=== PATIENT | female | born 1945 | race Caucasian/White ===

== ENCOUNTER 2020-10-04 11:00 | Outpatient (REF) | payer MEDICARE, SELFPAY | END 2020-10-04 11:01 | disposition home or self-care (01) | LOC: HO.MANLNP 11:00 | PROVIDERS: PCP Physician Assistant; Visit Provider Physician Assistant | DX: R30.9 Painful micturition, unspecified (principal) | CPT/HCPCS: 87086 ==

== ENCOUNTER 2021-01-28 07:41 | Outpatient (REF) | payer MEDICARE, SELFPAY ==
[2021-01-28 11:59] LABS: Estimated Average Glucose 140 mg/dL; Hemoglobin A1c % 6.5 %
[2021-01-28 12:00] LABS: Alanine Aminotransferase 21 U/L (0-31); Alkaline Phosphatase 89 U/L (39-117); Anion Gap 11 (12-20); Aspartate Amino Transferase 20 U/L (5-31); Bilirubin Total 1.3 mg/dL (0.0-1.0); Blood Urea Nitrogen 18 mg/dL (9-16); Calcium 8.6 mg/dL (8.4-10.2); Carbon Dioxide 27 mmol/L (22-29); Chloride 106 mmol/L (96-108); Cholesterol 181 mg/dL; Estimated Glomerular Filt Rate > 60; Glucose Fasting 121 mg/dL (60-99); HDL Cholesterol 46 mg/dL; LDL Cholesterol Calculated 105 mg/dl; Potassium 4.3 mmol/L (3.3-5.1); Sodium 140 mmol/L (135-145); Total Protein 6.7 g/dL (6.5-8.0); Triglycerides 152 mg/dL
[2021-01-28 13:11] LABS: Creatinine Urine 80.66 mg/dL; Microalbumin Urine < 5.0 mg/L
== END 2021-01-28 07:42 | disposition home or self-care (01) ==
LOC: HO.MANLR 07:41
PROVIDERS: PCP Internal Medicine; Visit Provider Internal Medicine
DX: E11.9 Type 2 diabetes mellitus without complications (principal)
CPT/HCPCS: 36415; 80053; 80061; 82043; 83036

== ENCOUNTER 2021-05-12 13:53 | Outpatient (REF) | payer MEDICARE, SELFPAY ==
[2021-05-13 03:21] LABS: Estimated Average Glucose 148 mg/dL; Hemoglobin A1c % 6.8 %
== END 2021-05-12 13:54 | disposition home or self-care (01) ==
LOC: HO.MANLDS 13:53
PROVIDERS: Visit Provider Internal Medicine
DX: E11.9 Type 2 diabetes mellitus without complications (principal)
CPT/HCPCS: 36415; 83036

== ENCOUNTER 2021-09-12 11:31 | Outpatient (REF) | payer MEDICARE, SELFPAY ==
[2021-09-12 12:49] LABS: Estimated Average Glucose 148 mg/dL; Hemoglobin A1c % 6.8 %
== END 2021-09-12 11:32 | disposition home or self-care (01) ==
LOC: HO.MANLDS 11:31
PROVIDERS: PCP Internal Medicine; Visit Provider Internal Medicine
DX: E11.9 Type 2 diabetes mellitus without complications (principal)
CPT/HCPCS: 36415; 83036

== ENCOUNTER 2021-12-10 13:50 | Outpatient (REF) | payer MEDICARE, SELFPAY ==
[2021-12-10 18:15] LABS: Estimated Average Glucose 157 mg/dL; Hemoglobin A1c % 7.1 %
== END 2021-12-10 13:51 | disposition home or self-care (01) ==
LOC: HO.MANLDS 13:50
PROVIDERS: PCP Internal Medicine; Visit Provider Internal Medicine
DX: E11.9 Type 2 diabetes mellitus without complications (principal); I10 Essential (primary) hypertension
CPT/HCPCS: 36415; 83036

== ENCOUNTER 2022-01-21 09:48 | Outpatient (REF) | payer MEDICARE, SELFPAY ==
[2022-01-21 12:10] LABS: Alanine Aminotransferase 22 U/L (0-31); Albumin Level 4.2 g/dL (3.5-5.0); Alkaline Phosphatase 91 U/L (39-117); Anion Gap 14 (12-20); Aspartate Amino Transferase 19 U/L (5-31); Bilirubin Total 1.3 mg/dL (0.0-1.0); Blood Urea Nitrogen 18 mg/dL (9-16); Calcium 9.5 mg/dL (8.4-10.2); Carbon Dioxide 26 mmol/L (22-29); Chloride 104 mmol/L (96-108); Cholesterol 176 mg/dL; Estimated Glomerular Filt Rate > 60; Glucose Fasting 142 mg/dL (60-99); HDL Cholesterol 51 mg/dL; LDL Cholesterol Calculated 103 mg/dl; Potassium 4.3 mmol/L (3.3-5.1); Sodium 140 mmol/L (135-145); Total Protein 7.1 g/dL (6.5-8.0); Triglycerides 111 mg/dL
[2022-01-21 12:14] LABS: Creatinine Urine 129.65 mg/dL; Microalbumin Urine < 5.0 mg/L
[2022-01-21 12:19] LABS: Estimated Average Glucose 154 mg/dL
== END 2022-01-21 09:49 | disposition home or self-care (01) ==
LOC: HO.MANLDS 09:48
PROVIDERS: PCP Internal Medicine; Visit Provider Internal Medicine
DX: E11.9 Type 2 diabetes mellitus without complications (principal)
CPT/HCPCS: 36415; 80053; 80061; 82043; 83036

== ENCOUNTER 2022-05-18 12:14 | Outpatient (REF) | payer MEDICARE, SELFPAY ==
[2022-05-18 18:21] LABS: Alanine Aminotransferase 27 U/L (0-31); Alkaline Phosphatase 131 U/L (39-117); Anion Gap 11 (12-20); Aspartate Amino Transferase 22 U/L (5-31); Bilirubin Total 0.9 mg/dL (0.0-1.0); Blood Urea Nitrogen 15 mg/dL (9-16); Calcium 8.8 mg/dL (8.4-10.2); Carbon Dioxide 26 mmol/L (22-29); Chloride 106 mmol/L (96-108); Cholesterol 174 mg/dL; Estimated Glomerular Filt Rate 60; Glucose Random 181 mg/dL (60-115); HDL Cholesterol 44 mg/dL; LDL Cholesterol Calculated 80 mg/dl; Potassium 4.3 mmol/L (3.3-5.1); Sodium 139 mmol/L (135-145); Triglycerides 250 mg/dL
[2022-05-18 18:25] LABS: Microalbumin Urine < 5.0 mg/L
[2022-05-19 05:43] LABS: Estimated Average Glucose 148 mg/dL; Hemoglobin A1c % 6.8 %
== END 2022-05-18 12:15 | disposition home or self-care (01) ==
LOC: HO.MANLDS 12:14
PROVIDERS: Visit Provider Internal Medicine
DX: E11.9 Type 2 diabetes mellitus without complications (principal)
CPT/HCPCS: 36415; 80053; 80061; 82043; 83036

== ENCOUNTER 2022-09-15 10:23 | Outpatient (REF) | payer MEDICARE, SELFPAY ==
[2022-09-15 14:45] LABS: Estimated Average Glucose 151 mg/dL; Hemoglobin A1c % 6.9 %
== END 2022-09-15 10:24 | disposition home or self-care (01) ==
LOC: HO.MANLDS 10:23
PROVIDERS: Visit Provider Internal Medicine
DX: E11.9 Type 2 diabetes mellitus without complications (principal)
CPT/HCPCS: 36415; 83036

== ENCOUNTER 2022-12-21 07:34 | Outpatient (REF) | payer MEDICARE, SELFPAY ==
[2022-12-21 14:14] LABS: Estimated Average Glucose 151 mg/dL; Hemoglobin A1c % 6.9 %
[2022-12-21 14:30] LABS: Alanine Aminotransferase 26 U/L (0-31); Albumin Level 3.9 g/dL (3.5-5.0); Alkaline Phosphatase 99 U/L (39-117); Anion Gap 17 (12-20); Aspartate Amino Transferase 20 U/L (5-31); Bilirubin Total 1.2 mg/dL (0.0-1.0); Blood Urea Nitrogen 16 mg/dL (9-16); Calcium 9.2 mg/dL (8.4-10.2); Carbon Dioxide 26 mmol/L (22-29); Chloride 105 mmol/L (96-108); Cholesterol 178 mg/dL; Estimated Glomerular Filt Rate > 60; Glucose Random 132 mg/dL (60-115); HDL Cholesterol 46 mg/dL; LDL Cholesterol Calculated 110 mg/dl; Potassium 3.9 mmol/L (3.3-5.1); Sodium 144 mmol/L (135-145); Total Protein 6.5 g/dL (6.5-8.0); Triglycerides 114 mg/dL
[2022-12-21 14:48] LABS: Creatinine Urine 64.99 mg/dL; Microalbumin Urine < 5.0 mg/L
== END 2022-12-21 07:35 | disposition home or self-care (01) ==
LOC: HO.MANLDS 07:34
PROVIDERS: Visit Provider Internal Medicine
DX: E11.9 Type 2 diabetes mellitus without complications (principal)
CPT/HCPCS: 36415; 80053; 80061; 82043; 83036

== ENCOUNTER 2023-05-21 14:58 | Outpatient (REF) | payer MEDICARE, SELFPAY ==
[2023-05-21 19:36] LABS: Estimated Average Glucose 143 mg/dL; Hemoglobin A1c % 6.6 %
[2023-05-21 21:02] LABS: Alanine Aminotransferase 21 U/L (0-31); Albumin Level 3.8 g/dL (3.5-5.0); Alkaline Phosphatase 97 U/L (39-117); Anion Gap 14 (12-20); Aspartate Amino Transferase 21 U/L (5-31); Bilirubin Total 0.8 mg/dL (0.0-1.0); Blood Urea Nitrogen 15 mg/dL (9-16); Carbon Dioxide 26 mmol/L (22-29); Chloride 106 mmol/L (96-108); Estimated Glomerular Filt Rate > 60; Glucose Random 181 mg/dL (60-115); Potassium 4.1 mmol/L (3.3-5.1); Sodium 142 mmol/L (135-145); Total Protein 6.6 g/dL (6.5-8.0)
== END 2023-05-21 14:59 | disposition home or self-care (01) ==
LOC: HO.MANLDS 14:58
PROVIDERS: Visit Provider Internal Medicine
DX: E11.9 Type 2 diabetes mellitus without complications (principal)
CPT/HCPCS: 36415; 80053; 83036

== ENCOUNTER 2023-05-26 11:11 | Outpatient (REF) | payer MEDICARE, SELFPAY ==
[2023-05-26 15:23] LABS: Creatinine Urine 35.81 mg/dL; Microalbumin Urine < 5.0 mg/L
== END 2023-05-26 11:12 | disposition home or self-care (01) ==
LOC: HO.MANLNP 11:11
PROVIDERS: Visit Provider Internal Medicine
DX: E11.9 Type 2 diabetes mellitus without complications (principal)
CPT/HCPCS: 82043

== ENCOUNTER 2023-09-13 07:36 | Outpatient (REF) | payer MEDICARE, SELFPAY ==
[2023-09-13 14:03] LABS: Alanine Aminotransferase 17 U/L (0-31); Albumin Level 3.8 g/dL (3.5-5.0); Alkaline Phosphatase 73 U/L (39-117); Anion Gap 16 (12-20); Aspartate Amino Transferase 18 U/L (5-31); Blood Urea Nitrogen 15 mg/dL (9-16); Calcium 9.6 mg/dL (8.4-10.2); Carbon Dioxide 25 mmol/L (22-29); Chloride 103 mmol/L (96-108); Cholesterol 157 mg/dL (<200); Estimated Glomerular Filt Rate > 60; Glucose Random 110 mg/dL (60-115); HDL Cholesterol 41 mg/dL (>40); LDL Cholesterol Calculated 88 mg/dL (<100); Potassium 3.4 mmol/L (3.3-5.1); Sodium 141 mmol/L (135-145); Total Protein 6.9 g/dL (6.5-8.0); Triglycerides 142 mg/dL (<150)
[2023-09-13 14:10] LABS: Estimated Average Glucose 151 mg/dL; Hemoglobin A1c % 6.9 % (<6.0)
[2023-09-13 14:12] LABS: Creatinine Urine 70.35 mg/dL; Microalbumin Urine < 5.0 mg/L
== END 2023-09-13 07:37 | disposition home or self-care (01) ==
LOC: HO.MANLDS 07:36
PROVIDERS: Visit Provider Internal Medicine
DX: E11.9 Type 2 diabetes mellitus without complications (principal)
CPT/HCPCS: 36415; 80053; 80061; 82043; 82570; 83036

== ENCOUNTER 2023-12-10 10:30 | Outpatient (REF) | payer MEDICARE, SELFPAY ==
[2023-12-10 14:12] LABS: Estimated Average Glucose 166 mg/dL; Hemoglobin A1c % 7.4 % (<6.0)
== END 2023-12-10 10:31 | disposition home or self-care (01) ==
LOC: HO.MANLDS 10:30
PROVIDERS: Visit Provider Internal Medicine
DX: E11.9 Type 2 diabetes mellitus without complications (principal)
CPT/HCPCS: 36415; 83036

== ENCOUNTER 2024-02-22 07:33 | Outpatient (REF) | payer MEDICARE, SELFPAY ==
[2024-02-22 13:42] LABS: Estimated Average Glucose 143 mg/dL; Hemoglobin A1c % 6.6 % (<6.0)
[2024-02-22 14:12] LABS: Creatinine Urine 87.29 mg/dL; Microalbumin Urine < 5.0 mg/L
[2024-02-22 14:14] LABS: Alanine Aminotransferase 18 U/L (0-31); Alkaline Phosphatase 84 U/L (39-117); Anion Gap 13 (12-20); Aspartate Amino Transferase 19 U/L (5-31); Bilirubin Total 0.8 mg/dL (0.0-1.0); Blood Urea Nitrogen 20 mg/dL (9-16); Calcium 9.6 mg/dL (8.4-10.2); Carbon Dioxide 30 mmol/L (22-29); Chloride 103 mmol/L (96-108); Cholesterol 155 mg/dL (<200); Estimated Glomerular Filt Rate > 60; Glucose Random 120 mg/dL (60-115); HDL Cholesterol 45 mg/dL (>40); LDL Cholesterol Calculated 90 mg/dL (<100); Potassium 3.7 mmol/L (3.3-5.1); Sodium 142 mmol/L (135-145); Triglycerides 103 mg/dL (<150)
== END 2024-02-22 07:34 | disposition home or self-care (01) ==
LOC: HO.MANLDS 07:33
PROVIDERS: Visit Provider Internal Medicine
DX: E11.9 Type 2 diabetes mellitus without complications (principal)
CPT/HCPCS: 36415; 80053; 80061; 82043; 82570; 83036

== ENCOUNTER 2024-03-03 14:24 | Outpatient (REF) | payer MEDICARE, SELFPAY ==
[2024-03-03 17:52] LABS: Rheumatoid Factor < 13.0 IU/mL (<15.0)
[2024-03-03 17:54] LABS: C Reactive Protein 0.16 mg/dL (< or = 0.50); Uric Acid 5.8 mg/dL (2.4-5.7)
[2024-03-06 21:29] LABS: Lyme Abs Screen <0.90 index
[2024-03-08 11:03] LABS: Cyclic Citrullinated Peptide <16 UNITS
[2024-03-08 12:59] LABS: Anti Nuclear Antibody Pattern Nuclear, Speckled; Anti Nuclear Antibody Screen POSITIVE (NEGATIVE)
== END 2024-03-03 14:25 | disposition home or self-care (01) ==
LOC: HO.MANLDS 14:24
PROVIDERS: Visit Provider Internal Medicine
DX: M25.50 Pain in unspecified joint (principal)
CPT/HCPCS: 36415; 84550; 86038; 86039; 86140; 86200; 86431; 86617; 86618

== ENCOUNTER 2025-03-28 10:49 | Outpatient (REF) | payer MEDICARE, SELFPAY ==
--- OUTSIDE RECORDS SUMMARY | 2025-03-28 12:14 | XMS_ITS | Data Portability ---
Author Organization [facility] Don Internal Medicine, Home Service Address [address] [place] [address] Assessment Encounter Date Assessment Date Assessment LastModified by Organization Details LastModified Time 06/16/2024 06/16/2024 [id number] [place] [id number] (COMMAND CENTER ANALYST) MDM MODERATE MUST MEET 2 OUT OF 3 ELEMENTS: PROBLEMS, DATA OR RISK ELEMENT 1: PROBLEMS ADDRESSED 1 OR MORE CHRONIC ILLNESS WITH EXACERBATION OR 2 OR MORE STABLE CHRONIC ILLNESSES OR 1 UNDIAGNOSED NEW PROBLEM OR 1 ACUTE ILLNESS W/SYMPTOMS OR 1 ACUTE COMPLICATED INJURY ELEMENT 2: DATA MUST MEET 1 OF 3 CATEGORIES CATEGORY 1: REVIEW OF PRIOR EXTERNAL NOTES, REVIEW OF RESULTS, ORDERING OF EACH TEST, ASSESSMENT REQUIRING INDEPENDENT HISTORIAN OR CATEGORY 2: INDEPENDENT INTERPRETATION OF TESTS BY ANOTHER PHYSICIAN OR SPECIALIST OR CATEGORY 3: DISCUSSION OF MGT OR TEST INTERPRETATION W/EXTERNAL PHYSICIAN OR SPECIALIST ELEMENT 3: RISK RISK OF COMPLICATIONS AND/OR MORBIDITY OR MORTALITY OF PATIENT MANAGEMENT PROVIDER MUST THOROUGHLY DOCUMENT EACH ELEMENT THAT IS COVERED Not available 06/16/2024 13:45:54 07/11/2024 07/11/2024 [id number] [place] [id number] (COMMAND CENTER ANALYST) MDM MODERATE MUST MEET 2 OUT OF 3 ELEMENTS: PROBLEMS, DATA OR RISK ELEMENT 1: PROBLEMS ADDRESSED 1 OR MORE CHRONIC ILLNESS WITH EXACERBATION OR 2 OR MORE STABLE CHRONIC ILLNESSES OR 1 UNDIAGNOSED NEW PROBLEM OR 1 ACUTE ILLNESS W/SYMPTOMS OR 1 ACUTE COMPLICATED INJURY ELEMENT 2: DATA MUST MEET 1 OF 3 CATEGORIES CATEGORY 1: REVIEW OF PRIOR EXTERNAL NOTES, REVIEW OF RESULTS, ORDERING OF EACH TEST, ASSESSMENT REQUIRING INDEPENDENT HISTORIAN OR CATEGORY 2: INDEPENDENT INTERPRETATION OF TESTS BY ANOTHER PHYSICIAN OR SPECIALIST OR CATEGORY 3: DISCUSSION OF MGT OR TEST INTERPRETATION W/EXTERNAL PHYSICIAN OR SPECIALIST ELEMENT 3: RISK RISK OF COMPLICATIONS AND/OR MORBIDITY OR MORTALITY OF PATIENT MANAGEMENT PROVIDER MUST THOROUGHLY DOCUMENT EACH ELEMENT THAT IS COVERED Not available 07/11/2024 11:04:07 09/22/2024 09/22/2024 Patient presente d to office today for their Medicare Annual Wellness Visit. Education was provided on healthy nutrition, including a diet rich in fruits and vegetables, minimizing simple carbohydrates, salt, and saturated fats. Encouraged regular cardiovascular exercise such as walking at least 30 minutes daily, 5 times per week. Emphasized preventive health measures and educated pt on fall prevention and community-based lifestyle interventions to help reduce health risks and promote healthy living. [email or web address] Not available 08/30/2024 15:30:59 10/02/2024 10/02/2024 [id number] [place] [id number] (COMMAND CENTER ANALYST) : MDM LOW MUST MEET 2 OF 3 ELEMENTS: PROBLEMS, DATA OR RISK ELEMENT 1: PROBLEMS ADDRESSED (LOW): 2 OR MORE SELF-LIMITED OR MINOR PROBLEMS OR 1 STABLE CHRONIC ILLNESS OR 1 ACUTE UNCOMPLICATED ILLNESS OR INJURY ELEMENT 2: DATA TO BE REVISED AND ANALYZED (LOW) MUST MEET 1 OF 2 CATEGORIES: CATEGORY 1. REVIEW OF PRIOR EXTERNAL NOTES/RESULTS, ORDERING OF TEST(S) CATEGORY 2. ASSESSMENT REQUIRING INDEPENDENT HISTORIAN(S) INCLUDE WHO THE HISTORIAN IS AND RELATION TO PT AND WHY PT IS UNABLE TO GIVE COMPLETE HISTORY ELEMENT 3: RISK (LOW) RISK OF COMPLICATIONS AND/OR MORBIDITY OR MORTALITY OF PATIENT MANAGEMENT PROVIDER MUST THOROUGHLY DOCUMENT ALL OF THE ELEMENTS COVERED Not available 10/02/2024 15:04:40 12/29/2024 12/29/2024 [id number] [place] [id number] (COMMAND CENTER ANALYST) MDM HIGH MUST MEET 2 OUT OF 3 ELEMENTS: PROBLEMS, DATA OR RISK ELEMENT 1: PROBLEMS 1 OR MORE CHRONIC ILLNESS W/SEVERE EXACERBATION, PROGRESSION MAY REQUIRE HOSPITAL LEVEL CARE OR 1 ACUTE OR CHRONIC ILLNESS OR INJURY THAT POSES A THREAT TO LIFE OR BODILY FUNCTION ELEMENT 2: DATA: MUST MEET 2 OF 3 CATEGORIES CATEGORY 1 REVIEW OF PRIOR EXTERNAL NOTES REVIEW OF THE RESULTS ORDERING OF EACH TEST ASSESSMENT REQUIRING INDEPENDENT HISTORIAN(S) CATEGORY 2: INDEPENDENT INTERPRETATION OF TESTS BY ANOTHER PROVIDER/SPECIALI ST CATEGORY 3: DISCUSSION OF MGT OR TEST INTERPRETATION W/EXTERNAL PHYSICIAN/SPECIAL IST ELEMENT 3: RISK HIGH RISK OF MORBIDITY FROM ADDITIONAL DIAGNOSTIC TESTING OR TREATMENT PROVIDER MUST THOROUGHLY DOCUMENT EACH ELEMENT THAT IS COVERED Not available 12/29/2024 13:54:10 Plan of Treatment Reminders Order Date Submit Date Provider Last Modified By Organization Details Last Modified Time Details Appointments FOLLOW UP 15 2024 01:30P M DR WARD Not available Not available Not available Lab CBC w/ auto diff 2023 024 [facility], [address] [place] [address], [id number], 12/26/2024 11:31:20 CMP, serum or plasma 2023 024 [facility], [address] [place] [address], [id number], 12/26/2024 12:47:26 lipid panel, blood 2023 024 [facility], [address] [place] [address], [id number], 12/26/2024 12:34:49 hemoglobi n, gastroint estinal, stool 2023 024 [facility] (Outpatient), [address] [place] [address], [id number], 09/22/2024 14:23:09 hemoglobi n A1c, QN, blood 2023 024 [facility], [address] [place] [address], [id number], 09/15/2024 18:19:07 hemoglobi n A1c, QN, blood 2023 024 [facility], [address] [place] [address], [id number], 12/26/2024 11:51:02 hemoglobi n A1c, QN, blood 2024 025 [facility], [address] [place] [address], [id number], 12/26/2024 11:51:02 Referral general surgeon referral 2024 025 michelle Rodriguez MD, [address] , [place], [address], 01/26/2025 10:31:12 Procedures None recorded. Surgeries None recorded. Imaging XR, sacrum + coccyx, 2 or more view 2024 [email or web address] [facility] - Outpatient Imaging Central Scheduling (Not Breast), [address] [place], [address], 01/05/2025 08:41:31 MAMMO, screening , digital, bilateral 2023 [email or web address] Not available 10/06/2024 08:12:40 bone density 2023 024 hrubner Not available 10/06/2024 08:12:40 Medication Orders dicyclomi ne 10 mg capsule 2023 DESM[id number], [address] [place], [address], 09/22/2024 14:27:43 hydrocort isone 2.5 % topical cream with perineal applicato r 2023 [id number], [address] [place], [address], 09/22/2024 14:21:33 phenobarb -hyoscyam n-atropin e-scop 16.2 mg-0.1037 mg-0.0194 mg tablet 2023 [id number], [address] [place], [address], 09/22/2024 14:21:34 prednison e 10 mg tablet 2023 024 [facility], [address] [place], [address], 09/22/2024 13:59:51 tizanidin e 4 mg tablet 2023 024 [id number], [address] [place], [address], 09/22/2024 13:59:57 Patient TargetsNo targets recorded. Patient Instructions Encounter Date Encounter Id Patient Instructions Last Modified By Organization Details Last Modified Time 06/16/2024 [id number] high blood press ure: care instructions Not available 06/16/2024 13:47:41 learning about h igh blood pressure Not available 06/16/2024 13:47:41 gastroesophageal reflux disease (GERD): care instructions Not available 06/16/2024 13:47:41 09/22/2024 [id number] irritable bowel syndrome: care instructions Not available 09/22/2024 14:27:41 learning about t ype 2 diabetes Not available 09/22/2024 14:21:30 type 2 diabetes: care instructions Not available 09/22/2024 14:21:29 advance care planning: care instructions Not available 09/22/2024 14:21:29 hemorrhoids: car e instructions Not available 09/22/2024 14:21:30 diarrhea: care instructions Not available 09/22/2024 14:21:29 lumbar spinal stenosis: care instructions Not available 09/22/2024 14:21:30 high blood press ure: care instructions Not available 09/22/2024 14:21:30 learning about h igh blood pressure Not available 09/22/2024 14:21:30 Discussed and explained advance directives such as standard forms to the {{patient* caregiver patient and caregiver}}. Face to face discussion lasted for a duration of 8___ minutes. Not available 09/22/2024 14:17:11 10/02/2024 [id number] irritable bowel syndrome: care instructions Not available 10/02/2024 15:02:16 Indigestion (Dyspepsia): Care Instructions Not available 10/02/2024 15:02:16 12/29/2024 [id number] hemorrhoids: car e instructions Not available 12/29/2024 13:52:19 Reason for Referral General Surgeon Referral for Hemorrhoids Referring Physician: Clem Ward, Internal Medicine, Encounter Date: 12/29/2024 Results Created Date Observation Date Name Description Value Unit Range Abnormal Flag Note LastModifiedBy Organization Detail LastModifiedTime 09/28/20 24 09/28/2024 XR, upper gastr ointe jerry l serie s No observ ation record ed. [facility] [address] [place], [address], 10/02/2024 15:00:40 01/13/20 25 01/12/2025 XR, sacru m + coccy x, 2 or more view No observ ation record ed. [email or web address] [address], [address], 01/16/2025 10:29:49 03/26/20 25 03/23/2025 MAMMO , scree alejandrina, digit al, bilat eral No observ ation record ed. [facility] (Breast Center) - Callback Orders Only [address] [place], [address], 03/26/2025 22:13:34 Result Notes None recorded. Problems Name Problem SNOMED Code Status Onset Date Resolution Date Notes Provider Name and Address Organization Details Recorded Time Malignan t melanoma of skin 44416427 Active 2018 Not Available [facility] 1 16:58:14 Pain of right hip joint 2035897055 45851 Active 2020 Clem Ward DO [address] [place] [address], [phone], [facility] 1 14:17:27 Osteoart hritis of hip 606403823 Active 2021 Clem Ward DO [address] [place] [address], [address], [facility] 2 13:50:20 Carpal tunnel syndrome of right wrist 4803082510 11996 Active 2021 Clem Ward DO [address] [place] [address], [address], [facility] 2 13:51:05 Osteopen ia 653050784 Active 2021 Clem Ward, DO [address] [place] [address], [address], [facility] 2 13:46:37 Irritabl e bowel syndrome 14458613 Active 2021 PEYTON GARAY [address] [place], [address], [facility] 2 10:53:32 Acute hemorrha gic cystitis 53608981 Active 2022 Clem Ward DO [address] [place] [address], [address], [facility] 3 14:29:20 Atrophic vaginiti s 43741724 Active 2022 Clem Ward DO [address] [place] [address], [address], [facility] 3 14:30:51 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 279317646 Active 2022 Clem Ward DO [address] [place] [address], [address], [facility] 3 16:19:01 Acute urinary tract infectio n 653192000 Active 2022 Clem Ward DO [address] [place] [address], [address], [facility] 3 16:21:59 Essentia l hyperten felicity 71344059 Active 2017 Not Available [facility] 1 16:58:14 Type 2 diabetes mellitus 01656510 Active 2017 Not Available [facility] 1 16:58:14 Osteoart hritis 767642560 Active 2017 hands,kn ees Not Available [facility] 1 16:58:14 History of bilatera l total knee replacem ent 4205964254 998793 Completed 201708/26/2018 Removal Reason: done Clem Ward, DO [address] [place] [address], [address], [facility] 8 14:57:32 Gastroes ophageal reflux disease 160357583 Active 2017 Not Available [facility] 1 16:58:14 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 52649758 Active 2022 Clem Ward, DO [address] [place] [address], [address], [facility] 3 22:34:47 Lumbago with sciatica 416552351 Active 2022 Clem Ward, DO [address] [place] [address], [address], [facility] 3 14:34:30 Spinal stenosis of lumbar region 41285229 Active 2022 Clem Ward, DO [address] [place] [address], [address], [facility] 3 14:30:06 Lumbago with sciatica 237666517 Active 2022 PEYTON GARAY [address] [place] [address], [address], [facility] 3 14:12:06 Stomach cramps 93212960 Active 2022 Clem Ward, DO [address] [place] [address], [address], [facility] 3 14:20:52 Type 2 diabetes mellitus without complica tion 166586193 Active 2023 Clem Ward DO [address] [place] [address], [address], [facility] 4 13:45:11 Nonulcer dyspepsi a 1399780 Active 2023 Clem Ward DO [address] [place] [address], [address], [facility] 4 13:50:00 Indigest ion 836102201 Active 2023 Clem Ward, DO [address] [place] [address], [address], [facility] 4 13:50:18 Abdomina l colic 9871794 Active 2023 Clem Ward, DO [address] [place] [address], [address], [facility] 4 13:50:40 Pain of multiple joints 65101637 Active 2023 Clem Ward, DO [address] [place] [address], [address], [facility] 4 13:58:21 Muscle pain 06931621 Active 2023 PEYTON GARAY [address] [place] [address], [address], [facility] 4 09:27:06 Hemorrho ids 19905996 Active 2023 Clem Ward, DO [address] [place] [address], [address], [facility] 4 14:10:44 Diarrhea 77940177 Active 2023 Clem Ward, DO [address] [place] [address], [address], [facility] 4 14:14:22 Flatulen t dyspepsi a 144938405 Active 2023 Clem Ward, DO [address] [place] [address], [address], [facility] 4 14:35:53 Sacral back pain 36209475 Active 2024 Clem Ward, DO [address] [place] [address], [address], [facility] 13:42:27 Problem Notes None recorded. Procedures Surgical History None recorded. Imaging Results Imaging Date Name Status LastModified by Organization Details LastModified Time 09/28/2024 XR, upper gastrointestinal series completed [address] [facility] [address] [place], [address], 10/02/2024 15:00:40 01/12/2025 XR, sacrum + coccyx, 2 or more view completed [email or web address] [address] [place], [address], 01/16/2025 10:29:49 03/23/2025 MAMMO, screening, digital, bilateral completed [address] (Breast Center) - Callback Orders Only [address] [place], [address], 03/26/2025 22:13:34 Procedure Notes None recorded. Medical Equipment None Reported. Allergies Allergen ID Allergen Name Allergen Category Reaction Reaction Severity Criticality Documentation Date Start Date Code Code System Note Provider Name and Address Organization Details Recorded Time 642 Product containin g angiotens in-conver ting enzyme inhibitor (product) medicatio n cough Not available Not available 02/16/2018 29496 009 SNOMED Lana ly [place] - [facility] 8 15:38:06 Medications Name Sig Start Date Stop Date Status Note LastModified by Organization Details LastModified Time celecoxib 200 mg capsule TAKE ONE CAPSULE BY MOUTH EVERY DAY NEEDED 06/18 completed Not Available Not Available Not Available carvedilol 25 mg tablet TAKE ONE TABLET BY MOUTH TWICE A DAY active Not Available Not Available No t Available carvedilol 6.25 mg tablet TAKE ONE TABLET BY MOUTH TWICE A DAY 01/29 completed Not Available Not Available Not Available prednisone 10 mg tablet TAKE 4 TABLETS BY MOUTH DAILY FOR 2 DAYS, TAKE 3 TABLETS DAILY FOR 2 DAYS, TAKE 2 TABLETS DAILY FOR 2 DAYS, TAKE 1 TABLET DAILY FOR 2 DAYS 09/22 completed Not Available Not Available Not Available carvedilol 12.5 mg tablet TAKE ONE TABLET BY MOUTH TWICE A DAY 03/29 completed Not Available Not Available Not Available tizanidine 4 mg tablet TAKE ONE TABLET BY MOUTH DAILY AT BEDTIME FOR 7 DAYS 09/22 completed Not Available Not Available Not Available fluconazole 150 mg tablet Take 1 tablet by oral route as directed for 1 day. 09/15 completed Not Available Not Available Not Available metoprolol succinate ER 50 mg tablet,exte nded release 24 hr Take 1 tablet twice a day by oral route for 90 days. 10/06 completed Not Available Not Available Not Available hydrocodone 5 mg-acetamin ophen 325 mg tablet TAKE 1 TABLET BY MOUTH EVERY 6 HOURS NEEDED FOR SEVERE PAIN FOR 7 DAYS . MAX OF 8 TABLETS PER 24 HOURS 06/16 completed Not Available Not Available Not Available meloxicam 15 mg tablet TAKE ONE TABLET BY MOUTH EVERY DAY NEEDED 06/16 completed Not Available Not Available Not Available phenazopyri dine 200 mg tablet TAKE ONE TABLET BY MOUTH THREE TIMES A DAY 02/05 completed Not Available Not Available Not Available prednisone 20 mg tablet TAKE ONE TABLET BY MOUTH EVERY DAY FOR 5 DAYS 05/28 completed Not Available Not Available Not Available fluorouraci l 5 % topical cream 12/07 completed Not Available Not Available Not Available metoprolol succinate ER 100 mg tablet,exte nded release 24 hr TAKE ONE TABLET BY MOUTH EVERY DAY 10/06 completed Not Available Not Available Not Available nifedipine ER 30 mg tablet,exte nded release TAKE ONE TABLET BY MOUTH EVERY DAY 10/06 completed Not Available Not Available Not Available levofloxaci n 250 mg tablet TAKE ONE TABLET BY MOUTH EVERY DAY FOR 7 DAYS 05/28 completed Not Available Not Available Not Available sulfamethox azole 800 mg-trimetho prim 160 mg tablet Take 1 tablet every 12 hours by oral route. 06/23 completed Not Available Not Available Not Available tramadol 50 mg tablet TAKE TWO TABLETS BY MOUTH EVERY 6 HOURS NEEDED FOR 7 DAYS 06/11 completed Not Available Not Available Not Available amoxicillin 500 mg tablet 09/17 completed Not Available Not Available Not Available Macrobid 100 mg capsule Take 1 capsule every 12 hours by oral route. 03/17 completed Not Available Not Available Not Available meloxicam 7.5 mg tablet 07/11 completed Not Available Not Available Not Available alprazolam 0.5 mg tablet TAKE ONE TABLET BY MOUTH EVERY EVENING AT BEDTIME 2024 active Not Available Not Available Not Avai lable baclofen 10 mg tablet TAKE ONE TABLET BY MOUTH THREE TIMES A DAY NEEDED 06/16 completed Not Available Not Available Not Available cephalexin 500 mg capsule TAKE ONE CAPSULE BY MOUTH TWICE A DAY FOR 5 DAYS 01/29 completed Not Available Not Available Not Available erythromyci n 5 mg/gram (0.5 %) eye ointment 05/01 completed Not Available Not Available Not Available glimepiride 4 mg tablet TAKE ONE TABLET BY MOUTH EVERY DAY 2024 active Not Available Not Available Not Avai lable gabapentin 300 mg capsule 04/01 completed Not Available Not Available Not Available triamterene 37.5 mg-hydrochl orothiazide 25 mg tablet TAKE ONE TABLET BY MOUTH TWICE A DAY 2024 active Not Available Not Available Not Avai lable omeprazole 20 mg capsule,del ayed release Take 1 capsule every day by oral route as needed. 10/13 completed Not Available Not Available Not Available gabapentin 100 mg capsule TAKE ONE CAPSULE BY MOUTH TWICE A DAY 09/22 completed Not Available Not Available Not Available Aspir-81 mg tablet,sher yed release Take 1 tablet every day by oral route. 09/17 completed Not Available Not Available Not Available estradiol 0.01% (0.1 mg/gram) vaginal cream INSERT ONE GRAM VAGINALLY TWICE A WEEK active Not Available Not Available No t Available methylpredn isolone 4 mg tablets in a dose pack Take 1 dose pk by oral route with meals for 6 days. 08/26 completed Not Available Not Available Not Available Lomotil 2.5 mg-0.025 mg tablet Take 1 tablet every 6 hours by oral route as needed. 10/13 completed Not Available Not Available Not Available phenobarb-h yoscyamn-at ropine-scop 16.2 mg-0.1037 mg-0.0194 mg tablet Take 1 tablet 3 times a day by oral route as needed for 10 days. 2023 active Not Available Not Available Not Avai lable dicyclomine 10 mg capsule TAKE ONE CAPSULE BY MOUTH TWICE A DAY NEEDED active Not Available Not Available No t Available tobramycin 0.3 %-dexametha sone 0.1 % eye drops,suspe nsion 05/01 completed Not Available Not Available Not Available oxycodone 5 mg tablet TAKE ONE TABLET BY MOUTH FOUR TIMES A DAY 09/17 completed Not Available Not Available Not Available Pneumovax-2 3 25 mcg/0.5 mL injection syringe 12/22 completed Not Available Not Available Not Available pregabalin 75 mg capsule TAKE ONE CAPSULE BY MOUTH TWICE A DAY FOR 30 DAYS 09/17 completed Not Available Not Available Not Available cod liver oil 06/16 completed Not Available Not Available Not Available Vitamin D 1000 units per day.. active Not Available Not Available No t Available Multivitami ns active Not Available Not Available Not Available Cinnamon 09/17 completed Not Available Not Available Not Available cholecalcif domingo (vitamin D3) 1,250 mcg (50,000 unit) capsule Take 1 capsule every week by oral route for 30 days. 05/01 completed Not Available Not Available Not Available Cholestyram ine Light 4 gram oral powder MIX 1 SCOOP DIRECTED ON PACKAGING AND DRINK BY MOUTH TWO TIMES A DAY FOR 30 DAYS 06/16 completed Not Available Not Available Not Available oxycodone 10 mg tablet 04/01 completed Not Available Not Available Not Available diclofenac 1 % topical gel Use as needed. 03/17 completed Not Available Not Available Not Available estradiol 10 mcg vaginal tablet INSERT 1 TABLET VAGINALLY 3 TIMES A WEEK active Not Available Not Available No t Available Procto-Med HC 2.5 % topical cream perineal applicator APPLY A THIN LAYER TO AFFECTED AREA S) TOPICALLY 2-4 TIMES PER DAY active Not Available Not Available No t Available Fluzone High-Dose 5522-6568 (PF) 180 mcg/0.5 mL intramuscul ar syringe 05/06 completed Not Available Not Available Not Available Fluad 65yr up(PF)45 mcg(15 mcgx3)/0.5 mL intramuscul ar syringe 12/07 completed Not Available Not Available Not Available Fluzone High-Dose (PF) 180 mcg/0.5 mL intramuscul ar syringe 12/22 completed Not Available Not Available Not Available Fluzone High-Dose Quad (PF) 240 mcg/0.7 mL IM syringe 08/09 completed Not Available Not Available Not Available Vitals Date Recorded Body height Body mass index (BMI) Body weight Heart rate Oxygen saturation Oxygen saturation in Arterial blood by Pulse oximetry Systolic blood pressure Diastolic blood pressure Provider Name and Address Organization Details Last Updated DateTime 4 162.56 cm 29.4 kg/m2 60318.0 9 g 73 /min 95 % 95 % 140 mm[Hg] 78 mm[Hg] Swetha Spencer [facility] 4 13:26:19 Date Recorded Body height Body mass index (BMI) Body weight Heart rate Oxygen saturation Oxygen saturation in Arterial blood by Pulse oximetry Systolic blood pressure Diastolic blood pressure Provider Name and Address Organization Details Last Updated DateTime 4 162.56 cm 28.8 kg/m2 47949.5 2 g 80 /min 98 % 98 % 136 mm[Hg] 82 mm[Hg] Josr Nguyen [facility] 4 10:42:19 Date Recorded Body height Body mass index (BMI) Body weight Heart rate Oxygen saturation Oxygen saturation in Arterial blood by Pulse oximetry Systolic blood pressure Diastolic blood pressure Provider Name and Address Organization Details Last Updated DateTime 4 162.56 cm 28.7 kg/m2 23894.9 3 g 62 /min 98 % 98 % 132 mm[Hg] 82 mm[Hg] Josr Nguyen [facility] 4 14:01:20 Date Recorded Body height Body mass index (BMI) Body weight Heart rate Oxygen saturation Oxygen saturation in Arterial blood by Pulse oximetry Systolic blood pressure Diastolic blood pressure Provider Name and Address Organization Details Last Updated DateTime 4 162.56 cm 28.7 kg/m2 76379.9 3 g 68 /min 98 % 98 % 148 mm[Hg] 82 mm[Hg] Josr Nguyen [facility] 4 14:24:41 Date Recorded Body height Body mass index (BMI) Body weight Systolic blood pressure Diastolic blood pressure Provider Name and Address Organization Details Last Updated DateTime 12/29/2024 162.56 cm 28.7 kg/m2 02938.93 g 140 mm[Hg] 78 mm[Hg] Heather Hurtado [facility] 5 13:31:05 Social History Question Answer Notes LastModified by Organizat ion Details LastModified Time Tobacco Smoking Status Never Smoker Not Available [facility] 10/01/2020 03:36:24 What Was The Date Of Your Most Recent Tobacco Screening? 12/29/2024 [email or web address] Information not available 12/29/2024 Do You Or Have You Ever Used Any Other Forms Of Tobacco Or Nicotine? No Information not available 09/25/2022 Sex: Unknown Functional Status None recorded. Mental Status None recorded. Family History Nothing Reported. Medical History No medical history recorded. Gynecological HistoryNo gynecological history recorded. Obstetrics History GPAL:G 0 P 0 0 0 0 Immunizations Vaccine Type Date Status Note Provider Nam e and Address Organization Details Recorded Time Influenza, split virus, quadrivalent, preservative 1 completed Not Available [facility] 06/05/2023 18:13:13 Influenza, split virus, quadrivalent, preservative 8 completed Not Available [facility] 06/05/2023 18:13:13 Influenza, split virus, quadrivalent, preservative 2 completed Not Available [facility] 06/05/2023 18:13:13 COVID-19, mRNA, LNP-S, PF, 30 mcg/0.3 mL dose 2 completed Not Available [facility] 06/05/2023 18:13:13 Respiratory syncytial virus (RSV) MAB, unspecified 3 completed Shirley ly [facility] 09/07/2023 09:00:24 influenza nasal, unspecified formulation 3 completed Shirley ly [facility] 09/07/2023 09:00:43 COVID-19, mRNA, LNP-S, PF, 100 mcg/0.5mL dose or 50 mcg/0.25mL dose 4 completed Josr ly [facility] 08/28/2024 09:01:28 Influenza, [place] [facility] 08:05:11 Influenza, split virus, quadrivalent, preservative 9 completed Not Available [facility] 06/05/2023 18:13:13 Influenza, split virus, quadrivalent, preservative 0 completed Not Available [facility] 06/05/2023 18:13:13 COVID-19, mRNA, LNP-S, PF, 30 mcg/0.3 mL dose 1 completed Not Available [facility] 06/05/2023 18:13:13 COVID-19, mRNA, LNP-S, PF, 30 mcg/0.3 mL dose 1 completed Not Available [facility] 06/05/2023 18:13:13 pneumococcal polysaccharide PPV23 3 completed Not Available [facility] 06/05/2023 18:13:13 pneumococcal polysaccharide PPV23 9 completed Not Available [facility] 06/05/2023 18:13:13 zoster recombinant 2 completed Not Available [facility] 06/05/2023 18:13:13 Past Encounters Encounter ID Performer Location Encounter Start Date Encounter Closed Date Diagnosis/Indication Diagnosis SNOMED-CT Code Diagnosis ICD10 Code Diagnosis Note [id number] Clem Ward [facility] [address], [place] [address] 04/01/2018 13:56:28 04/01/2018 16:47:30 Osteoarthritis 000079706 M19.90 diclofenac gel helped but caused skin irritation had to slow down Essential hypertension 46234446 I10 stable no chnge in meds will cont to rechk 6 mo [id number] Clem Ward DO [facility] [address], [place] [address] 05/06/2018 14:10:42 05/06/2018 15:16:27 Type 2 diabetes mellitus 82837113 E11.9 doing great and feeling good a1c is 6.4 states eating well as discussed and does exercise now Essential hypertension 30926879 I10 stable no chnge in meds will cont to rechk 6 mo Osteoarthritis 058872476 M19.90 relates the medrol was not helpful didnt change sx as discussed will cont the cbd this does helpand tg notices with the hands [id number] Clme Ward [facility] [address],[place] [address] 08/26/2018 14:06:51 08/26/2018 15:12:08 Type 2 diabetes mellitus 23961298 E11.9 noted irritation of her neuropathy is a real problem encouraged to go and retry a diff formulatio n of her cannabis med and to dicuss with personel at work Essential hypertension 73210367 I10 stable no chnge in meds will cont to rechk 6 mo Osteoarthritis 286631972 M19.90 relates the medrol was not helpful didnt change sx as discussed will cont the cbd but encouraged to seek new formulatio n this does helpand tg notices with the hands [id number] Clem Ward [facility] [address] [facility] [address],[place] [address] 12/07/2018 14:32:53 12/07/2018 20:21:14 Type 2 diabetes mellitus 32001451 E11.9 noted irritation of her neuropathy is a real problem encouraged to go and retry a diff formulatio n of her cannabis med and to discuss with personel at work a1c is excellent at 6.6 Essential hypertension 11893219 I10 stable no chnge in meds will cont to rechk 6 mo Screening mammography 24 673138 Z12.31 will order Malignant melanoma of skin 60358025 C43.9 has surgery sched for next with dr martin Anxiety 59238906 F41.9 [id number] Clem Ward [facility] [address],[place] [address] 03/08/2019 11:08:29 03/08/2019 13:40:36 Acute cystitis 23702069 N30.00 Essential hypertension 35171607 I10 stable [id number] Clem Ward [facility] [address] [facility] [address],[place] [address] 03/17/2019 13:32:07 03/17/2019 14:42:44 Recurrent urinary tract infection 262506819 N39.0 bactrim is not effective per culture will start levofloxac in now Anxiety 43228897 F41.9 [id number] Clem Ward [facility] [address] [facility] [address],[place] [address] 06/23/2019 13:17:30 06/23/2019 14:17:30 Type 2 diabetes mellitus 91585776 E11.9 noted irritation of her neuropathy is a real problem encouraged to go and retry a diff formulatio n of her cannabis med and to discuss with personel at work a1c is excellent at 6.5 Essential hypertension 71004206 I10 stable no chnge in meds will cont to rechk 6 mo Anxiety 48351758 F41.9 [id number] Clem Ward [facility] [address] [facility] [address],[place] [address] 09/15/2019 13:20:28 09/15/2019 14:35:49 Essential hypertension 85010925 I10 stable no chnge in meds will cont to rechk 6 mo Type 2 david betes mellitus 43872588 E11.9 noted irritation of her neuropathy is still a real problem and retry a diff formulatio n of her cannabis med did not help a1c is good at 6.8 was 6.5 Vitamin D deficiency 347 67006 E55.9 [place] [address] u for 30 days Hallux eliza kiara AND bunion 859553715 M20.11 pt wants new lap procedure Anxiety 23646414 F41.9 [id number] Clem Ward [facility] [address],[place] [address] 12/22/2019 13:18:52 12/22/2019 14:01:54 Essential hypertension 11632356 I10 stable no chnge in meds will cont to rechk 6 mo Type 2 david betes mellitus 96049889 E11.9 Poor diet over holidays - will work on improving a1c is 7.0 up from 6.8 Vitamin D deficiency 347 18493 E55.9 Now taking 1000 IU and will recheck Muscle pain 80360090 M79 .10 Predominan tly in shoulders, thighs, upper back Intermitte nt better some days, worse than others Anxiety 12207516 F41.9 well controlled with current med [id number] Clem Ward [facility] [address] [facility] [address],[place] [address] 05/01/2020 13:17:52 05/01/2020 14:12:22 Essential hypertension 95273751 I10 stable no chnge in meds will cont to rechk 6 mo Type 2 david betes mellitus 54476083 E11.9 doing ok - will work on improving diet a1c is 6.7 from 7.0 which was up from 6.8 Malignant melanoma of skin 98125274 C43.9 needs to follow up with dr greer Dysuria 34936253 R30.9 [id number] Clem Ward [facility] [address],[place] [address] 08/09/2020 13:20:56 08/09/2020 13:50:48 Type 2 diabetes mellitus 90834860 E11.9 doing ok - will work on improving diet a1c is 6.9 from 6.7 from 7.0 which was up from 6.8 Essential hypertension 70517150 I10 stable no chnge in meds will cont to rechk 6 mo Gastroesop hageal reflux disease 656550385 K21.9 has worsened lately and has =been back on the omeprazole [id number] Clem Ward DO [facility] [address],[place] [address] 10/04/2020 10:21:11 10/04/2020 10:52:27 Dysuria 20132470 R30.9 will wait for culture results Essential hypertension 29937107 I10 elevated today normal last visit patient also in pain [id number] Clem Ward [facility] [address] [facility] [address],[place] [address] 02/05/2021 13:34:03 02/05/2021 14:20:50 Type 2 diabetes mellitus 18258992 E11.9 doing ok - working on improving diet a1c is 6.5 was 6.9 from 6.7 from 7.0 which was up from 6.8 needs to get a foot exam Essential hypertension 81775234 I10 stable no chnge in meds will cont to rechk 6 mo Gastroesop hageal reflux disease 578211482 K21.9 has =been back on the omeprazole for the last 2 weeks [id number] Clem Ward DO [facility] [address], [place] [address] 05/16/2021 13:24:21 05/16/2021 15:24:58 Type 2 diabetes mellitus 55975396 E11.9 doing ok - working on improving diet as she has been eating a lot of junk food and desserts a1c is 6.8 and was 6.5 was 6.9 from 6.7 from 7.0 which was up from 6.8 needs to get a foot exam Essential hypertension 10548387 I10 stable no chnge in meds will cont to rechk 6 mo Gastroesop hageal reflux disease 197184623 K21.9 has =been back on the omeprazole for the last 2 weeks Malignant melanoma of skin 72520452 C43.9 needs to follow up with dr greer Irritable bowel syndrome 17420294 K58.9 given known issues about this we will have her try if we can get it [id number] Clem Ward [facility] [address],[place] [address] 09/17/2021 13:47:18 09/17/2021 14:30:18 Type 2 diabetes mellitus 84947484 E11.9 doing ok - working on improving diet as she has been eating a lot of junk food and desserts a1c is 6.8 and was same 6.8 before this and then 6.5 was 6.9 from 6.7 from 7.0 which was up from 6.8 needs to get a foot exam Essential hypertension 78671819 I10 stable no chnge in meds will cont to rechk 6 mo Osteoporosis 58035198 M8 1.0 cont to follow Hepatitis C screening 41 7150891 Z11.59 no risk factors so not needed Pain of ri ght hip joint 8978687236 64860 M25.551 Gastroesop hageal reflux disease 444299613 K21.9 has =been back on the omeprazole but is not getting better but does help someshe will increase her dose to twice a day [id number] Clem Ward [facility] [address], [place] [address] 01/26/2022 15:14:27 01/27/2022 15:35:58 Type 2 diabetes mellitus 81273778 E11.9 doing ok - working on improving diet as she has been eating a lot of junk food and desserts a1c is 7.0and was 7.1 before 6.8 and was same 6.8 before this and then 6.5 was 6.9 from 6.7 from 7.0 which was up from 6.8 needs to get a foot exam Essential hypertension 66514538 I10 stable no chnge in meds will cont to rechk 6 mo Malignant melanoma of skin 80014987 C43.9 needs to follow up with dr greer [id number] Clem Ward [facility] [address] [facility] [address],[place] [address] 06/26/2022 13:25:54 06/26/2022 16:14:04 Type 2 diabetes mellitus 45236161 E11.9 doing ok - working on improving diet as she has been eating a lot of junk food and desserts a1c is down to 6.8 was at 7.0 and was 7.1 before 6.8 and was same 6.8 before this and then 6.5 was 6.9 from 6.7 from 7.0 which was up from 6.8 needs to get a foot exam Essential hypertension 59650814 I10 stable no change in meds will cont to rechk 6 mo Active or passive immunization 218980868 Z23 advised she is due for new shingles and Tdap will consider Osteoarthritis of hip 23 4041683 M16.9 getting worse with progressed impact on gait Carpal neil rasheed syndrome of right wrist 3983595071 65593 G56.01 [id number] Clem Ward [facility] [address],[place] [address] 09/25/2022 13:22:05 09/25/2022 14:49:19 Active or passive immunization 970199810 Z23 patient advised she is due for flu shot, tdap & shingles Adult the [facility] th examination 027762377 Z00.00 discussed lab in detail Hepatitis C screening 41 6510652 Z11.59 no risk factors so not needed Osteopenia 835019250 M85 .80 Type 2 david betes mellitus 15613214 E11.9 doing ok - working on improving diet as she has been eating a lot of junk food and desserts a1c is 6.9 was down to 6.8 was at 7.0 and was 7.1 before 6.8 and was same 6.8 before this and then 6.5 was 6.9 from 6.7 from 7.0 which was up from 6.8 needs to get a foot exam [id number] Clem Ward [facility] [address] [facility] [address] [place] [facility] [address] 09/28/2022 09:45:44 09/29/2022 08:50:19 Essential hypertension 45882692 I10 BP much improvedno side effectsadj usted medication and mfr. [id number] Clem Ward [facility] [address],[place] [address] 10/13/2022 10:32:56 10/13/2022 17:13:23 Essential hypertension 52169351 I10 BP improved with the carvedilol Irritable bowel syndrome 16028186 K58.2 will start on low dose of dicyclomin e [id number] Clem Ward [facility] [address] [place] [facility] [address] 01/01/2023 08:35:28 01/01/2023 14:39:40 Essential hypertension 49176490 I10 seems to be stble on crvedilol but has not been checking at home because she through hers away Type 2 david betes mellitus 62017645 E11.9 doing ok - working on improving diet as she has been eating a lot of junk food and desserts a1c is 6.9 was down to 6.8 was at 7.0 and was 7.1 before 6.8 and was same 6.8 before this and then 6.5 was 6.9 from 6.7 from 7.0 which was up from 6.8 needs to get a foot exam Osteoarthritis 210192081 M19.90 relates the medrol was not helpful didnt change sx as discussed will cont the cbd but encouraged to seek new formulatio n this does helpand tg notices with the hands Malignant melanoma of skin 76444192 C43.9 needs to follow up with dr greer Acute hemo rrhagic cystitis 79703385 N30.01 resolved after cephalexin no further blood in the urine Atrophic vaginitis 66147 000 N95.2 on yuvafem from claims specialist [id number] Clem Ward [facility] [address] [facility] [address],[place] [address] 01/29/2023 15:45:39 02/01/2023 10:43:50 Hepatitis C screening 938186873 Z11.59 no risk factors so not needed Essential hypertension 29030712 I10 seems to be stble on crvedilol but has not been checking at home because she through hers away 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 Acute urin baldo tract infection 242429087 N39.0 [id number] Clem Ward [facility] [address] [facility] [address],[place] [address] 05/28/2023 13:58:13 05/28/2023 15:09:42 Type 2 diabetes mellitus 66538796 E11.9 doing ok - working on improving diet as she has been eating a lot of junk food and desserts a1c is 6.9 was down to 6.8 was at 7.0 and was 7.1 before 6.8 and was same 6.8 before this and then 6.5 was 6.9 from 6.7 from 7.0 which was up from 6.8 needs to get a foot exam Essential hypertension 15210572 I10 out of control will add dyazide Advance care planning 71 0204165 Z71.89 utd Hepatitis C screening 41 1635347 Z11.59 no risk factors so not needed Lumbago with sciatica 20 3325571 M54.42 severe pain now with leg weakness [id number] Clem Ward [facility] [address] [facility] [address],[place] [address] 06/11/2023 09:52:56 06/11/2023 14:58:25 Lumbago with sciatica 242289031 M54.42 will set up [facility] medspred and oxy note effectived id set herself up with PT; scheduled out into July Clem Ward DO [facility] [address],[place] [address] 09/17/2023 13:33:37 09/17/2023 14:45:00 Essential hypertension 77248321 I10 out of control will add dyazide Type 2 david betes mellitus 55085980 E11.9 doing ok - working on improving diet as she has been eating a lot of junk food and desserts a1c is 6.9 was down to 6.8 was at 7.0 and was 7.1 before 6.8 and was same 6.8 before this and then 6.5 was 6.9 from 6.7 from 7.0 which was up from 6.8 needs to get a foot exam Spinal mela nosis of lumbar region 82305643 M48.062 s/p surgical decomprees ion Stomach cramps 66162163 R10.9 [id number] Clem Ward [facility] [address],[place] [address] 12/17/2023 13:23:57 12/17/2023 14:01:38 Type 2 diabetes mellitus without complication 537402673 E11.9 [address] [place] [address] (COMMAND CENTER ANALYST) MDM MODERATE MUST MEET 2 OUT OF 3 ELEMENTS: PROBLEMS, DATA OR RISK ELEMENT 1: PROBLEMS ADDRESSED 1 OR MORE CHRONIC ILLNESS WITH EXACERBATI ON OR 2 OR MORE STABLE CHRONIC ILLNESSES OR 1 UNDIAGNOSE D NEW PROBLEM OR 1 ACUTE ILLNESS W/SYMPTOMS OR 1 ACUTE COMPLICATE D INJURY ELEMENT 2: DATA MUST MEET 1 OF 3 CATEGORIES CATEGORY 1: REVIEW OF PRIOR EXTERNAL NOTES, REVIEW OF RESULTS, ORDERING OF EACH TEST, ASSESSMENT REQUIRING INDEPENDEN T HISTORIAN OR CATEGORY 2: INDEPENDEN T INTERPRETA TION OF TESTS BY ANOTHER PHYSICIAN OR SPECIALIST OR CATEGORY 3: DISCUSSION OF MGT OR TEST INTERPRETA TION W/EXTERNAL PHYSICIAN OR SPECIALIST ELEMENT 3: RISK RISK OF COMPLICATI ONS AND/OR MORBIDITY OR MORTALITY OF PATIENT MANAGEMENT PROVIDER MUST THOROUGHLY DOCUMENT EACH ELEMENT THAT IS COVERED Essential hypertension 52437937 I10 dyazide is working wellshe is diuresing all day. Type 2 david betes mellitus 38459662 E11.9 a1c is 7.4 now relates poor diethad back surgery and hasnt done much Indigestion 523827455 K3 0 ongoing and has been present for a while comes and goes prob food choice related Irritable bowel syndrome 77392283 K58.9 has not yet tried the dicyclomin .... [id number] Clem Ward [facility] [address] [facility] [address],[place] [address] 03/03/2024 13:20:37 03/03/2024 14:15:00 Essential hypertension 80083381 I10 dyazide is working wellshe is diuresing all day. Type 2 david betes mellitus 28832447 E11.9 a1c is great at 6.6 now eating better now relates poor diethad back surgery and hasnt done much Abdominal colic 6612063 R10.83 has had for years antispasm meds dont help Abdominal cutaneous nerve entrapment syndrome 154006509 G58.8 need someone to do trigger point inj Pain of mu ltiple joints 68816269 M25.50 [id number] Clem Ward [facility] [address] [facility] [address] [place] [facility] [address] 06/16/2024 13:19:21 06/16/2024 15:04:49 Depression screening 728505553 Z13.31 SCREENING NEGATIVE Stomach cramps 31893936 R10.9 stay off the meds and supps that we discussed if not helping she will stop the glimepirid e Type 2 david betes mellitus 62999711 E11.9 a1c is pending great at 6.6 now eating better now relates poor diethad back surgery and hasnt done much Gastroesop hageal reflux disease 791025559 K21.9 has =been back on the omeprazole but is not getting better but does help someshe will increase her dose to twice a day Essential hypertension 12301687 I10 dyazide is working wellshe is diuresing all day. Osteoarthritis 161154154 M19.90 relates still has multi joint issues [id number] Clem Ward [facility] [address],[place] [address] 07/11/2024 10:32:06 07/11/2024 11:30:13 Lumbago with sciatica 468654659 M54.42 severe pain now with leg weaknesswi ll use quick pred taper as this usu makes this resolve quicklyadd tizanidine [id number] Clem Ward DO [facility] [address],[place] [address] 09/22/2024 13:49:23 09/22/2024 15:25:45 Adult health examination 526055572 Z00.01 discussed lab in detail Screening for cardiovascular system disease 977197724 Z13.6 will order Screening for malignant neoplasm of colon 359014655 Z12.11 will order Screening for osteoporosis 655670455 Z13.820 will order Screening mammography 24 802359 Z12.31 will order Hemorrhoids 80658412 K64 .9 Diarrhea 96303446 R19.7 will try prn given she has had this worked Essential hypertension 30370827 I10 dyazide is working wellshe is diuresing all day. Type 2 david betes mellitus 06604946 E11.9 a1c is 6.6 great at 6.6 now eating better now relates poor diethad back surgery and hasnt done much Spinal mela nosis of lumbar region 75094451 M48.062 s/p surgical decomprees ion Irritable bowel syndrome 79044957 K58.9 has not yet tried the dicyclomin .... [id number] Clem Ward DO [facility] [address],[place] [address] 10/02/2024 14:18:19 10/02/2024 15:18:33 Irritable bowel syndrome 60085723 K58.9 has not yet tried the dicyclomin .... Indigestion 633328409 K3 0 ongoing and has been present for a while comes and goes prob food choice relatedshe will be back on omeprazole [id number] Clem Ward DO [facility] [address],[place] [address] 12/29/2024 13:25:51 12/29/2024 13:59:14 Abdominal cutaneous nerve entrapment syndrome 651523709 G58.8 trigger point inj as needed Essential hypertension 46484854 I10 dyazide is working wellshe is diuresing all day. but bp is fgood Spinal mela nosis of lumbar region 74406993 M48.062 s/p surgical decomprees ion Type 2 david betes mellitus 82386893 E11.9 a1c is 6.9 was 6.6 great at 6.6 now eating better now relates poor diethad back surgery and hasnt done much Sacral back pain 4888074 3 M54.50 believe she has a prob sacral problem Hemorrhoids 11102437 K64 .9 cont to bother despite treatment and need to have removed Health Concerns Section Related Observation LastModified by Organization Detai ls LastModified Time None Recorded Concern Status LastModified by Organization Details LastModified Time None Recorded Advance Directives Directive None Recorded Payers Encounter Date Sequence Insurance Name Policy Number Policy Levine Covered Member ID Levine Member ID Guarantor Name 06/16/2024 1 [id number] 01 Armond Valdez [id number] Daja Valdez 07/11/2024 1 [id number] 01 Armond Valdez [id number] Daja Valdez 09/22/2024 1 [id number] 01 Armond Valdez [id number] Daja Valdez 10/02/2024 1 [place] [id number] 01 Armond Valdez [id number] Daja Valdez 12/29/2024 1 [id number] 01 Armond Valdez [id number] Daja Valdez Notes Date Note Type Note Provider Name a nd Address Organization Details Recorded Time 4 text/html states not feeling well with stomachhas stopped dairy but not that much improvedrelates that she did not tolerate the cholesyramine Clem Ward, DO [address] [facility], [place], [address], [facility] 06/16/2024 13:55:06 4 text/html relates woke up at home with pain and needles in legs and low back painseen in ER wednesday and given toradol did ok on sat and then on wednesday woke up in worse pain went back to ER given more toradoldid not get any other medhas been trying to walk and keep moving Clem Ward, DO [address] [facility], [place], [address], [facility] 07/11/2024 11:07:15 4 text/html Medicare Annual Wellness VisitReported bypatient.Diet and Nutrition:healthy diet Fracture Risk:no history of fractures; no recent explained fracture; no sudden unexplained fractures; no previous musculoskeletal injuries Physical Activity:exercises on a regular basis; recent increase in physical activity; good physical condition Depression Risk:never feels sad, empty, or tearful; no loss of interest in activities; no significant changes in weight; no sleep disturbances or insomnia; no agitation; no loss of energy; no feelings of worthlessness or guilt; no thoughts of suicide; no history of depression; no history of mood disorders Orientation:no disorientation to time; no disorientation to date; no disorientation to place Concentration and Memory:no decreased concentrating ability; no memory lapses or loss; does not forget words Speech/Motor difficulties:no speech difficulties; no difficulty expressing formulated concepts; no difficulty with fine manipulative tasks; no difficulty writing/copying; no slowed reaction time; does not knock things over when trying to pick them up Hearing:no loss of hearing Vision:no vision problems Activities of Daily Living:able to bathe with limited or no assistance; able to contol urination and bowels; able to dress with limited or no assistance; able to feed self with limited or no assistance; able to get out of chair or bed with limited or no assistance; able to groom with limited or no assistance; able to toilet with limited or no assistance Instrumental Activities of Daily Living:able to do house work with limited or no assistance; able to grocery shop with limited or no assistance; able to manage medications with limited or no assistance; able to manage money with limited or no assistance; able to prepare meals with limited or no assistance; able to use the phone with limited or no assistance Falls Risk Assessment:no frequent falls while walking; no fall in the past year; no fall since last visit; no dizziness/vertigo Home Safety:no unsafe sindi hazzards; no unsafe stairs; no unsafe gas appliances; working smoke/CO detectors; wears protective head gear for biking/high velocity; use of seatbelts; practicing 'safer sex'; no vision or hearing loss while driving; no fire arms; has hand bars in the bathroom/shower; good lighting in the homeNotes:trying to be goo d with her diet but sometimes cheats here for rechk and is doing goodoverall is feeling [id number] is 7.2 and was 6.6. Clem Ward DO [address] [place] [address], [phone], [facility] 09/22/2024 14:31:52 4 text/html her e for rechk and is feeling ok relates has not tried new med yet omeprazole was stopped and gerd sx have returned Clem Ward DO [address] [place] [address], [phone], [facility] 10/02/2024 15:05:58 5 text/html here for r echk and is having pain in her low back and sacral areastill having pain in her right lat flank c/cw the cutaneous nerve irritation she has hadalso having numbness knee Clem Ward DO [address] [place], [phone], [facility] 12/29/2024 13:55:50 OBGyn Episode No OBEpisode recorded.
[2025-03-28 13:57] LABS: Estimated Average Glucose 143 mg/dL; Hemoglobin A1C 177.5871 umol/L; Hemoglobin A1c % 6.6 % (<6.0); Total Hemoglobin (HGBA1C) 3624.8394 umol/L
== END 2025-03-28 10:50 | disposition home or self-care (01) ==
LOC: HO.MANLDS 10:49
PROVIDERS: Visit Provider Internal Medicine
DX: E11.9 Type 2 diabetes mellitus without complications (principal)
CPT/HCPCS: 36415; 83036

== ENCOUNTER 2025-08-03 14:09 | Outpatient (REF) | payer MEDICARE, SELFPAY ==
--- OUTSIDE RECORDS SUMMARY | 2025-08-02 23:59 | XMS_ITS | Continuity of Care Document ---
Author Organization [facility] Address [address] [place], [place] [address]sheree morocho, [address] [place] [address]- Care Team Providers Care Inside Sales Representative Name Role Phone Clem Wilson DO Hillary Primary Care Physician [phone] Encounter [facility] Date(s): 07/03/25 - 08/02/25 [facility] [address] [place] [address] Drive [address] [place], [place] [address] Attending Physician: Lina Rucker Admitting Physician: Lina Rucker Referring Physician: AdmtrLina Encounter Type: Triage Allergies, Adverse Reactions, Alerts Substance Criticality Severity Reaction Reaction Severity Status CARL inhibitors coughing severe Active Medications ALPRAZolam 0.5 mg oral tablet 0.5 mg, 1, tablet, By Mouth, Daily at bedtime, Refills 0, Maintenance, 08/12/23 2:47:00 PM EDT, Partial fill upon patient request if the prescription is for a schedule II opioid drug. Start Date: 08/12/23 Status: Ordered Medication Dispense Status: Completed Total Allowed Fills: 1 Fills Dispensed: 0 carvedilol 25 mg oral tablet 25 mg, 1, tablet, By Mouth, 2 times a day, Refills 0, Maintenance, 08/12/23 2:46:00 PM EDT, Partial fill upon patient request if the prescription is for a schedule II opioid drug. Start Date: 08/12/23 Status: Ordered Medication Dispense Status: Completed Total Allowed Fills: 1 Fills Dispensed: 0 cranberry oral tablet = 500 mg, By Mouth, Daily, 0 Refills, Maintenance, 08/18/23 3:51:00 PM EDT, Partial fill upon patient request if the prescription is for a schedule II opioid drug. Start Date: 08/18/23 Status: Ordered Medication Dispense Status: Completed Total Allowed Fills: 1 Fills Dispensed: 0 estradiol 10 mcg vaginal tablet 1 tablet = 10 mcg, Daily at bedtime, 3 x a week, 0 Refills, Maintenance, 08/12/23 2:46:00 PM EDT, Partial fill upon patient request if the prescription is for a schedule II opioid drug. Start Date: 08/12/23 Status: Ordered Medication Dispense Status: Completed Total Allowed Fills: 1 Fills Dispensed: 0 glimepiride 4 mg oral tablet 1 tablet = 4 mg, By Mouth, Daily in AM, 0 Refills, Maintenance, 08/12/23 2:47:00 PM EDT, Partial fill upon patient request if the prescription is for a schedule II opioid drug. Start Date: 08/12/23 Status: Ordered Medication Dispense Status: Completed Total Allowed Fills: 1 Fills Dispensed: 0 hydrochlorothiazide-triamterene 25 mg-37.5 mg oral tablet 1, tablet, By Mouth, Daily in AM, Refills 0, Maintenance, 08/12/23 2:46:00 PM EDT, Partial fill uponpatient request if the prescription is for a schedule II opioid drug. Start Date: 08/12/23 Status: Ordered Medication Dispense Status: Completed Total Allowed Fills: 1 Fills Dispensed: 0 hydrochlorothiazide-triamterene 25 mg-37.5 mg oral tablet Refills 0, Maintenance, 07/03/25 2:26:00 PM EDT, Partial fill upon patient request if the prescription is for a schedule II opioid drug. Start Date: 07/03/25 Status: Ordered Medication Dispense Status: Completed Total Allowed Fills: 1 Fills Dispensed: 0 Multivitamin 1 tab, By Mouth, Daily in AM, 0 Refills, Maintenance, 08/18/23 3:51:00 PM EDT, Partial fill upon patient request if the prescription is for a schedule II opioid drug. Start Date: 08/18/23 Status: Ordered Medication Dispense Status: Completed Total Allowed Fills: 1 Fills Dispensed: 0 pregabalin 75 mg oral capsule 1 capsule = 75 mg, By Mouth, 2 times a day, 0 Refills, Maintenance, 08/12/23 2:46:00 PM EDT, Partialfill upon patient request if the prescription is for a schedule II opioid drug. Start Date: 08/12/23 Status: Ordered Medication Dispense Status: Completed Total Allowed Fills: 1 Fills Dispensed: 0 PreserVision 1 tab, By Mouth, Daily, 0 Refills, Maintenance, 08/18/23 3:53:00 PM EDT, Partial fill upon patient request if the prescription is for a schedule II opioid drug. Start Date: 08/18/23 Status: Ordered Medication Dispense Status: Completed Total Allowed Fills: 1 Fills Dispensed: 0 Vitamin D3 oral tablet = 25 mcg, By Mouth, Daily, # 30 tablet, 0 Refills, Maintenance, 08/18/23 3:52:00 PM EDT, Tablet, Partial fill upon patient request if the prescription is for a schedule II opioid drug. Start Date: 08/18/23 Status: Ordered Medication Dispense Status: Completed Quantity: 30.0 Unit: tablet Total Allowed Fills: 1 Fills Dispensed: 0 Social History Social History Type Response Smoking Status Never (less than 100 in lifetime) entered on: 08/12/23 Sex Sex Representation Female (finding) Imaging * Event Display: MRI Spine, Non- BH Authored Date: Patient Care team information Care Team Personnel Name: Clem Wilson DO Position: Reference Physician Member Role: PCP Address: [address] [place] [address] Internal Medicine [address] Telecom: Name: Heather Barrera RN Position: S RN Member Role: Primary Care Nurse Care Team Related Persons Name: DENEEN JIMENEZ Insurance Providers Guarantor name: ELIS Health Plan Information #: 1 Payer: [employer] MED[employer] ADV HMO Payer Identifier: ELIS Member Number: [id number] Group Number: [id number] Subscriber Identifier: ELIS Relationship to Subscriber: self Coverage Type: Medicare HMO Coverage Verification Date: Telecom: Address: Health Plan Information #: 2 Payer: MEDICARE B Payer Identifier: ELIS Member Number: [id number] Group Number: ELIS Subscriber Identifier: NA Relationship to Subscriber: self Coverage Type: NA Coverage Verification Date: Telecom: Address:
--- OUTSIDE RECORDS SUMMARY | 2025-08-03 14:38 | XMS_ITS | Encounter Summary ---
Author Organization Located Within [facility] Address [address] [place] [id number] Phone Care Team Providers Care Salesperson Household Appliances Name Role Phone Mary Janetova Clem Hillary Primary Care Provider [phone] Pcp, Unknown Primary Care Provider Unavailabl Clem Royal DO Primary Care Provider Encounter Details Date Type Department Care Team (Late st Contact Info) Description 10/07/2017 Ancillary Orders [address] [id number] Linn Ramesh PA-C [address] [place] [address] Orthopedics & Sports Medicine, [facility]. [place], [place] [id number] [email or web address] Left knee pain, unspecified chronicity Social History Tobacco Use Types Packs/Day Years Used Date Smoking Tobacco: Never Assessed Comments Unknown Sex and Gender Information Value Date Recorded Sex Assigned at Female 12/01/2022 8:55 AM EST Legal Sex Female 10:08 PM EDT Gender Identity Female 12/01/2022 8:55 AM EST Sexual Orientation Straight 12/01/2022 8: 55 AM EST documented as of this encounter Plan of Treatment Not on file documented as of this encounter Results * XR KNEE 3 VIEW (LEFT) (10/08/2017 1:39 PM EST) Narrative Ida Moody - 10/08/2017 1:40 PM EST This image report has been auto-finalized and has not been read by a Radiologist. Interpretation has been included in the provider encounter note for this date of service. Linn Ramesh PA-C IMG XR LOWER EXTREMITY F inal Result documented in this encounter Visit Diagnoses Diagnosis Left knee pain, unspecified chronicity Left knee pain, unspecified chronicity documented in this encounter Care Teams Salesperson Household Appliances Relationship Specialty Start Date End Date Clem Wilson DO [email or web address] PCP - General 09/16/17 10/08/20 Pcp, Unknown PCP - General 10/09/20 06/29/22 Clem Wilson DO [email or web address] PCP - General Internal Medicine 06/30/22 documented as of this encounter Additional Source Comments The information contained in this document represents components of the legal health record. It is not the complete legal health record.[facility]
--- OUTSIDE RECORDS SUMMARY | 2025-08-03 14:38 | XMS_ITS | Encounter Summary ---
Author Organization [facility] Address [address] [employer] [address] [address] Phone Care Team Providers Care Country Printer Apprentice Name Role Phone Pcp, Unknown Primary Care Provider Clem Powell DO Primary Care Provider [phone] Encounter Details Date Type Department Care Team ([facility] st Contact Info) Description 09/18/2021 Transcribe Orders Virtual Department [address] [place] [address] Clem Wilson DO [address] [facility] [place] [address] [place] [address] [email or web address] Age-related osteoporosis without current pathological fracture (Primary Dx); Osteoporosis, unspecified osteoporosis type, unspecified pathological fracture presence Social History Tobacco Use Types Packs/Day Years Used Date Smoking Tobacco: Never Smokeless Tobacco: Never Alcohol Use Standard Drinks/Week Comments Yes 1 (1 standard drink = 0.6 oz pur e alcohol) Comments No Sex and Gender Information Value Date Recorded Sex Assigned at Female 12/01/2022 8:55 AM EST Legal Sex Female 10:08 PM EDT Gender Identity Female 12/01/2022 8:55 AM EST Sexual Orientation Straight 12/01/2022 8: 55 AM EST documented as of this encounter Plan of Treatment Not on file documented as of this encounter Visit Diagnoses Diagnosis Age-related osteoporosis without current pathological fracture- Primary Osteoporosis, unspecified osteoporosis type, unspecified pathological fracture presence documented in this encounter Care Teams Country Printer Apprentice Relationship Specialty Start Date End Date Pcp, Unknown PCP - General 10/09/20 06/29/22 Clem Wilson DO [email or web address] PCP - General Internal Medicine 06/30/22 documented as of this encounter Additional Source Comments The information contained in this document represents components of the legal health record. It is not the complete legal health record.[facility]
--- OUTSIDE RECORDS SUMMARY | 2025-08-03 14:38 | XMS_ITS | Clinical Summary ---
Author Organization [facility] Address [address] [address] Phone Care Team Providers Care Showroom Manager Name Role Phone Reilly Ward Primary Care Provider [phone] Allergies Active Allergy Reactions Criticality Noted Date Comments Burak Inhibitors Cough 02/03/2024 Medications ALPRAZolam (XANAX) 0.5 MG tablet Take 0.5 mg by mouth nightly at bedtime. 3 7 Active cod liver oil, bulk, 100 % Oil Acti ve glimepiride (AMARYL) 4 MG tablet Take 4 mg by mouth daily. 1 7 Active multivitamin per tablet Take 1 tablet by mouth daily. Active Medication-Free Text Perser Vision Vitamin Active cholecalciferol , vitamin D3, 25 mcg (1,000 unit) capsule Vitamin D 1000 units per day.. Active carvedilol (COREG) 12.5 MG tablet carvedilol 12.5 mg tablet TAKE ONE TABLET BY MOUTH TWICE A DAY Active estradioL (ESTRACE) 0.01 % (0.1 mg/gram) vaginal cream Place 1 g vaginally 2 (two) times a week. 42.5 g 1 4 Active gabapentin (NEURONTIN) 100 MG capsule Take 1 capsule by mouth 2 (two) times a day. 4 Active triamterene-hyd roCHLOROthiazid e (MAXZIDE-25) 37.5-25 mg per tablet Take 1 tablet by mouth 2 (two) times a day. Active meloxicam (MOBIC) 7.5 MG tablet Take 1 tablet (7.5 mg total) by mouth daily for 10 days. 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 There is also no significant prolapse on examination to account for the symptoms. It could still be to HILDA of menopause. As the Vagifem did work for her initially, I recommended increasing it to 3 times per week. If this does not work, we may want to consider the Estring or potentially referral to urology for cystoscopy. Assessment & Plan (10/15/2020 6:41 PM EST): Symptoms consistent with genitourinary syndrome of menopause. Reviewed options for treatment including vulvovaginal moisturizers and/or topical estradiol. Daja elects for trial of Yuvafem. Medication instructions reviewed and Rx sent to pharmacy. Malignant melanoma of skin 12/07/201803/24 Essential hypertension 02/16/2018 3 Gastroesophageal reflux disease 02/16/2018 03/24/2023 Osteoarthritis of hip 02/16/2018 03/24/2023 Type 2 diabetes mellitus 02/16/2018 023 Encounters Date Type Department Care Team Description 07/10/2025 2:20 PM EDT - 07/10/2025 11:59 PM EDT Hospital Encounter [facility], Bone Density - [address] [address] Reilly Ward, DO Discharge Disposition: Home or Self Care 06/23/2025 4:10 PM EDT - 06/23/2025 11:59 PM EDT Hospital Encounter [address] [address] Reilly Ward, DO Discharge Disposition: Home or Self Care 06/14/2025 12:01 PM EDT - 06/14/2025 11:59 PM EDT Hospital Encounter [facility] [address] [place] [address] Janelle Gambino NP Discharge Disposition: Home or Self Care 06/14/2025 Transcribe Orders [facility] [address] [place] [address] Janelle Gambino NP Irritable bowel syndrome with diarrhea (Primary Dx) 05/30/2025 Procedure Pass [address] [address] 05/30/2025 Transcribe Orders Virtual Department [address] [place] [id number] Reilly Ward, Spinal stenosis, lumbar region without neurogenic claudication (Primary Dx) 05/05/2025 3:32 PM EDT - 05/05/2025 11:59 PM EDT Hospital Encounter [address] [address] Reilly Ward, DO Discharge Disposition: Home or Self Care 04/16/[address] [address] from Last 3 Months Immunizations No known immunizations Social History Tobacco Use Types Packs/Day Years Used Date Smoking Tobacco: Never Smokeless Tobacco: Never Tobacco Cessation:Counseling Given: Not Answered Alcohol Use Standard Drinks/Week Comments Yes 1 (1 standard drink = 0.6 oz pur e alcohol) Education Answer Date Recorded Are you interested in more education? Not on will e 03/25/2023 Are you concerned about learning? Not on file 03/25/2023 No 03/25/2023 No 03/25/2023 Digital Access Answer Date Recorded No 04/26/2023 No 04/26/2023 Reliable internet access at home? Not on file 04/26/2023 Device with a working camera? Not on file Intimate Partner Violence Answer Date R ecorded Are you denied basic needs s uch as food, clothing, or medical care? No 07/09/2024 In the past 12 months have y ou been in a relationship with a person who hurts, threatens, or tries to control you? No 07/09/2024 Are you denied basic needs s uch as food, clothing, or medical care? No 07/09/2024 In the past 12 months have y ou been in a relationship with a person who hurts, threatens, or tries to control you? No 07/09/2024 Comments No Sex and Gender Information Value Date Recorded Sex Assigned at Female 12/01/2022 8:55 AM EST Legal Sex Female 10:08 PM EDT Gender Identity Female 12/01/2022 8:55 AM EST Sexual Orientation Straight 12/01/2022 8: 55 AM EST Last Filed Vital Signs Vital Sign Reading Time Taken Comments Blood Pressure 135/92 07/09/2024 8:53 AM EDT Pulse 62 07/09/2024 8:53 AM EDT Temperature 36.9 C (98.4 F) 07/09/2024 5:52 AM EDT Respiratory Rate 15 07/09/2024 8:53 AM EDT Oxygen Saturation 97% 07/09/2024 8:53 AM EDT Inhaled Oxygen Concentration - - Weight 75.8 kg (167 lb) 06/19/2025 11:21 AM EDT Height 162.6 cm (5' 4 ) 06/19/2025 11:21 AM EDT Body Mass Index 28.67 06/19/2025 11:21 AM EDT Plan of Treatment Health Maintenance Due Date Last Done Comments Adult Td,Tdap Booster 1945 DEPRESSION SCREENING 1958 HEPATITIS C SCREENING 1964 ZOSTER VACCINES (1 of 2) 11/07/2012 09/12/2012 PNEUMOCOCCAL VACCINES (50+ years) (3 of 3 - PCV) 09/06/2020 09/06/2019, 09/13/2013 DIABETIC EYE EXAM 03/24/2023 URINE MICROALBUMIN/CREATININE RATIO 03/24/2023 10/22/2017 BLOOD PRESSURE 08/05/2024 02/03/2024 HEMOGLOBIN A1C 06/25/2025 12/26/2024, 08/29, 12/19/2019, Additional history exists INFLUENZA VACCINE (#1) 2025 , 09/21/2022, 09/03/2021, Additional history exists COVID-19 VACCINE ( season) 2025 09/14/2023, 10/01/2022, 10/01/2022, Additional history exists LIPID PANEL 12/26/2025 12/26/2024, 06/2019, 06/16/2019, Additional history exists POTASSIUM LEVEL 12/26/2025 12/26/2024, 09/05/2019 RSV VACCINE Completed 09/06/2023 SMOKING STATUS SCREENING (Once After 26 Yrs) Completed 03/23/2025 OSTEOPOROSIS SCREENING INITIAL (ONE-TIME) Completed 07/10/2025 HEPATITIS A VACCINES Aged Out No long er eligible based on patient's age to complete this topic HIB VACCINES Aged Out No longer eligi ble based on patient's age to complete this topic MENINGOCOCCAL VACCINES (ACWY) Aged Out No longer eligible based on patient's age to complete this topic MENINGOCOCCAL VACCINES (B) Aged Out N o longer eligible based on patient's age to complete this topic Medical Devices Implanted Type Area Banquet Food Server Device Identifier Shelf Expiration Date Model / Serial / Lot Lens Lens Bilatera l: Eye Prosthetic Joint Prosthetic Joint Bilatera l: Knee Procedures Procedure Name Priority Date/Time Associated Diagnosis Comments BD DXA SPINE AND HIP WITH FOREARM Routine 07/10/2025 2:50 PM EDT Encounter for screening for osteoporosis MRI LUMBAR SPINE (NEURO) WITH AND WITHOUT CONTRAST Routine 06/23/2025 5:29 PM EDT Spinal stenosis, lumbar region without neurogenic claudication IMMUNOGLOBULIN A Routine 06/14/2025 12:2 0 PM EDT Irritable bowel syndrome with diarrhea TISSUE TRANSGLUTAMINASE IGA Routine 06/14/2025 12:20 PM EDT Irritable bowel syndrome with diarrhea MRI LUMBAR SPINE (NEURO) WITHOUT CONTRAST Routine 05/05/2025 4:45 PM EDT Other symptoms and signs involving the musculoskeletal system HEMOGLOBIN A1C Routine 12/26/2024 7:19 AM EST Type 2 diabetes mellitus without complication, unspecified whether superintendent container terminal insulin use LIPID PANEL Routine 12/26/2024 7:19 AM EST Type 2 diabetes mellitus without complication, unspecified whether superintendent container terminal insulin use COMPREHENSIVE METABOLIC PANEL Routine 12/26/2024 7:19 AM EST Type 2 diabetes mellitus without complication, unspecified whether superintendent container terminal insulin use MICROALBUMIN/CREATININE RATIO, RANDOM URINE Routine 10/22/2017 7:32 AM EST Diabetes 1.5, managed as type 2 from Last 3 Months or Most Recently Relevant to Health Maintenance Results * BD DXA SPINE AND HIP WITH FOREARM (07/10/2025 2:50 PM EDT) Anatomical Region Laterality Modality Bone Density Bone Density 07/10/2025 2:38 PM EDT Impressions 07/11/2025 12:34 PM EDT Interpretation: Normal bone mineral density. Narrative 07/11/2025 12:34 PM EDT Referred By: REILLY WARD Indications: Osteoporosis Scanner: QingCloud A with serial# of [id number] located at [facility] Bone Density Scan (DXA) 07/10/25 Details of prior DXA scans are available by clicking View Full Report BMD T- Z- Skeletal Site gm/cm2 score score BMD Change Since Prior Scan ------ ----- ----- PA Spine (L1) 1.149 2.00 4.40 0.032 (2.9%)* since 12/19/2014 Total Hip (Right) 1.063 1.00 3.00 -0.022 (stable) since 12/19/2014 Femoral Neck (Right) 0.817 -0.30 2.00 0.009 (stable) since 12/19/2014 1/3 Radius (Left) 0.639 -0.80 2.30 N/A ------ ----- ----- * Denotes significant change when >= 0.022 g/cm2 for the spine, 0.027 g/cm2 for the total hip, 0.029 g/cm2 for the femoral neck, 0.023 g/cm2 for the forearm (1/3 radius). Interpretation: Normal bone mineral density. Technical Quality: Imaging of all sites was of adequate quality.NOTE: We newly excluded one or more vertebrae. To allow comparisons with prior tests, we recalculated the total BMD of all prior spine tests after excluding the same vertebra(e). Because only two vertebrae are measurable, interpret PA spine results with caution; serial changes may be more variable than usual. FRAX: A FRAX(r) score is not provided because the patient has normal bone density. Reviewed By: Kevin Grewal MD on 07/11/2025 12:34:44 Additional Information: -World Health Organization criteria classify adults based on lowest T-score at PA spine, hip or forearm: Normal (T-score >= -1.0), Osteopenia (T-score between -1 and -2.5), or Osteoporosis (T-score <= -2.5). At [facility], T-scores are compared to peak bone density of a young white gender matched reference population. - For premenopausal women and men under the age of 50, Z-scores (comparison to age, gender, and ethnicity matched reference population) are used: Above expected range for age (Z-score >= 2.0), Within expected range of age (Z-score 1.9 to -1.9), or Below expected range for age (Z-score <= -2.0). - The Bone Health and Osteoporosis Foundation recommends that treatment be considered in men aged more than 50 years and in postmenopausal women with ANY of the following: Prior hip or vertebral fractures; T-score of <= -2.5 at the PA spine or hip; or 10 year fracture probability by FRAX of >= 3% for the hip or >= 20% for major osteoporotic fracture. - The FRAX algorithm (https://www.stephany.ac.uk/FRAX/tool.aspx) is designed to predict 10-year fracture risk in treatment-naive adults between the ages of 40 and 90. It is not intended to be used in those receiving pharmacologic osteoporosis treatment. - The TBS is derived from the texture of the DXA spine image and has been shown to be related to bone microarchitecture and fracture risk. This data provides information independent of BMD value. It adds to fracture risk assessment with a FRAX adjusted for TBS score. If your patient had a TBS and qualified for a FRAX score, the reported FRAX score has been adjusted for TBS. TBS Score Interpretation 1.350 and greater Normal bone microarchitecture 1.200 to 1.350 Partially degraded bone microarchitecture 1.200 and less Degraded bone microarchitecture - Including race/ethnicity in the generation of T- or Z-scores or in the FRAX calculation is complicated, and currently undergoing active review to ensure that we can give patients the best information on their risk of fracture. - Some prior studies may not be compatible with our comparison software. - Click on View Full Report to see subsequent pages with images and prior bone density results. Procedure Note Kevin Grewal MD - 07/11/2025 Referred By: REILLY WARD Indications: Osteoporosis Scanner: QingCloud A with serial# of [id number] located at [facility] Bone Density Scan (DXA) 07/10/25 Details of prior DXA scans are available by clicking View Full Report BMD T- Z- Skeletal Site gm/cm2 score score BMD Change Since Prior Scan ------ ----- PA Spine (L1) 1.149 2.00 4.40 0.032 (2.9%)* since12/19/2014 Total Hip (Right) 1.063 1.00 3.00 -0.022 (stable) since12/19/2014 Femoral Neck (Right) 0.817 -0.30 2.00 0.009 (stable) since12/19/2014 1/3 Radius (Left) 0.639 -0.80 2.30 N/A ------ ----- * Denotes significant change when >= 0.022 g/cm2 for the spine, 0.027g/cm2 for the total hip, 0.029 g/cm2 for the femoral neck, 0.023 g/cm2 for the forearm (1/3 radius). Interpretation: Normal bone mineral density. Technical Quality: Imaging of all sites was of adequate quality.NOTE: We newly excluded one or more vertebrae. To allow comparisons with priortests, we recalculated the total BMD of all prior spine tests after excluding the same vertebra(e). Because only two vertebrae are measurable, interpret PA spine results with caution; serial changes may be more variable thanusual. FRAX: A FRAX(r) score is not provided because the patient has normal bone density. Reviewed By: Kevin Grewal MD on 07/11/2025 12:34:44 Additional Information: -World Health Organization criteria classify adults based on lowestT-score at PA spine, hip or forearm: Normal (T-score >= -1.0), Osteopenia (T-score between -1 and -2.5), or Osteoporosis (T-score <= -2.5). At [facility], T-scores are compared to peak bone density of a young white gender matched reference population. - For premenopausal women and men under the age of 50, Z-scores(comparison to age, gender, and ethnicity matched reference population) are used:Above expected range for age (Z-score >= 2.0), Within expected range of age (Z-score 1.9 to -1.9), or Below expected range for age (Z-score <= -2.0). - The Bone Health and Osteoporosis Foundation recommends that treatment be considered in men aged more than 50 years and in postmenopausal women with ANY of the following: Prior hip or vertebral fractures; T-score of <= -2.5 at the PA spine or hip; or 10 year fracture probability by FRAX of >= 3%for the hip or >= 20% for major osteoporotic fracture. - The FRAX algorithm (https://www.stephany.ac.uk/FRAX/tool.aspx) is designed to predict 10-year fracture risk in treatment-naive adultsbetween the ages of 40 and 90. It is not intended to be used in those receiving pharmacologic osteoporosis treatment. - The TBS is derived from the texture of the DXA spine image and has been shown to be related to bone microarchitecture and fracture risk. This data provides information independent of BMD value. It adds to fracture risk assessment with a FRAX adjusted for TBS score. If your patient had a TBSand qualified for a FRAX score, the reported FRAX score has been adjusted for TBS. TBS Score Interpretation 1.350 and greater Normal bone microarchitecture 1.200 to 1.350 Partially degraded bone microarchitecture 1.200 and less Degraded bone microarchitecture - Including race/ethnicity in the generation of T- or Z-scores or in the FRAX calculation is complicated, and currently undergoing active review to ensure that we can give patients the best information on their risk of fracture. - Some prior studies may not be compatible with our comparison software. - Click on View Full Report to see subsequent pages with images andprior bone density results. IMPRESSION: Interpretation: Normal bone mineral density. us Reilly A Bigda DO IMG BD BONE DENSITY DEXA Final R esult * MRI LUMBAR SPINE (NEURO) WITH AND WITHOUT CONTRAST (06/23/2025 5:29 PM EDT) MGB IMG LICENSED FUNERAL DIRECTOR COMMENT 1 cm right subarticular disc extrusion at L2-L3 level, contributing to moderate to severe spinal canal stenosis. Neurosurigcal evaluation is recommended. [facility] Anatomical Region Laterality Modality L-spine Magnetic Resonan ce 06/25/2025 1:05 PM EDT Impressions 06/25/2025 1:33 PM EDT 1. Status post L2-L3 and L3-L4 laminectomy changes as detailed above. No drainable fluid collection or abscess formation is identified in the postoperative bed. 2. Redemonstration of marked degenerative disc disease changes at L2-L3 level with a 1 x 1 x 1 cm right subarticular disc extrusion extending from L2-L3 level through lower third L3 level. Superimposed with the degenerative disc disease changes, there is moderate to severe spinal canal stenosis at L2-L3. Neurosurgical evaluation is recommended. 3. Additional degenerative disc disease changes of the lumbar spine as detailed above. A clinically significant result was initiated on 06/25/2025 1:32 PM, Message ID [id number]. Narrative 06/25/2025 1:33 PM EDT MRI LUMBAR SPINE (NEURO) WITH AND WITHOUT CONTRAST Referring clinician's provided indication for this examination in Epic: Outside Radiology Order; spinal stenosis TECHNIQUE: MRI LUMBAR SPINE (NEURO) WITH AND WITHOUT CONTRAST Multi-sequence, multi-planar MRI of the lumbar spine was performed without and with intravenous contrast. COMPARISON: MRI LUMBAR SPINE (NEURO) WITHOUT CONTRAST FINDINGS: LUMBAR SPINE: Alignment and Vertebrae: There is mild levoconvex curvature of the lumbar spine. There is normal lumbar lordosis. There is mild retrolisthesis of L2 on L3, L3 on L4 and L5 on S1, unchanged. Vertebral body heights are maintained without evidence of compression fracture. Patient is status post L2-L3 and L3-L4 laminectomy. Marrow: There is similar degree of marked bone marrow edema involving the L2 and L3 vertebral bodies. Additionally, bone marrow edema is seen bilateral L3 pedicles, appear similar compared to prior study. Discs and Endplates: There is multilevel disc desiccation and disc height loss. No abnormal disc enhancement is seen throughout the lumbar spine, particularly at L2-L3 level. Conus: Conus medullaris terminates at L2. The cauda equina nerve roots appear unremarkable. Contrast: There is paravertebral edema along L2-L3 level with associated enhancement, not significantly changed compared to prior study. There is enhancement along the laminectomy beds, compatible with granulation tissue. No drainable fluid collection or abscess formation is seen in the laminectomy bed. There is circumferential epidural enhancement in the spinal canal extending from L2-L3 level through L3- L4 level, directly representing granulation tissue formation. There is a 1 x 1 x 1 cm centrally T2 hyperintense, early T2 hypointense, T1 isointense, peripherally enhancing epidural structure extending from L2-L3 level inferiorly to the lower third L3 level along the right lateral recess, likely representing a right subarticular disc extrusion. This corresponds to the indeterminate focus seen on the prior MR lumbar spine dated May 05, 2025. There is no leptomeningeal enhancement. Soft Tissue: Please see above. Other Findings: None. Findings by level: T12-L1: No spinal or foraminal stenosis. L1-L2: No spinal or foraminal stenosis. L2-L3: Laminectomy changes are seen. There is diffuse disc bulge with superimposed 1 x 1 x 1 cm right subarticular disc extrusion extending to lower third L3 level, corresponding to the indeterminate focus seen on the prior study. There is bilateral facet hypertrophy and ligamentum flavum thickening at this level as well. Overall, there is moderate to severe spinal canal stenosis at L2-L3 level, not significantly changed compared to prior study. There is severe right and moderate left neural foramina narrowing. L3-L4: Laminectomy changes are seen. There is diffuse disc bulge with bilateral facet hypertrophy, resulting in [id number] spinal canal stenosis. There is severe bilateral neural foramina narrowing. These findings are not significantly changed compared to prior study. L4-L5: There is diffuse disc bulge with bilateral facet hypertrophy. There is mild spinal canal stenosis. There is moderate bilateral neural foramina narrowing, unchanged. L5-S1: Diffuse disc bulge with bilateral facet hypertrophy. There is mild spinal canal stenosis. Severe bilateral neural foramina narrowing is seen. Overall, degenerative disc disease changes have not significantly changed. Procedure Note Carmen Morocho MD - 06/25/2025 MRI LUMBAR SPINE (NEURO) WITH AND WITHOUT CONTRAST Referring clinician's provided indication for this examination in Epic:Outside Radiology Order; spinal stenosis TECHNIQUE: MRI LUMBAR SPINE (NEURO) WITH AND WITHOUT CONTRAST Multi-sequence, multi-planar MRI of the lumbar spine was performed withoutand with intravenous contrast. COMPARISON: MRI LUMBAR SPINE (NEURO) WITHOUT CONTRAST FINDINGS: LUMBAR SPINE: Alignment and Vertebrae: There is mild levoconvex curvature of the lumbarspine. There is normal lumbar lordosis. There is mild retrolisthesis of L2on L3, L3 on L4 and L5 on S1, unchanged. Vertebral body heights aremaintained without evidence of compression fracture. Patient is statuspost L2-L3 and L3-L4 laminectomy. Marrow: There is similar degree of marked bone marrow edema involving theL2 and L3 vertebral bodies. Additionally, bone marrow edema is seenbilateral L3 pedicles, appear similar compared to prior study. Discs and Endplates: There is multilevel disc desiccation and disc heightloss. No abnormal disc enhancement is seen throughout the lumbar spine,particularly at L2-L3 level. Conus: Conus medullaris terminates at L2. The cauda equina nerve rootsappear unremarkable. Contrast: There is paravertebral edema along L2-L3 level with associatedenhancement, not significantly changed compared to prior study. There isenhancement along the laminectomy beds, compatible with granulationtissue. No drainable fluid collection or abscess formation is seen in thelaminectomy bed. There is circumferential epidural enhancement in thespinal canal extending from L2-L3 level through L3-L4 level, directlyrepresenting granulation tissue formation. There is a 1 x 1 x 1 cmcentrally T2 hyperintense, early T2 hypointense, T1 isointense,peripherally enhancing epidural structure extending from L2-L3 levelinferiorly to the lower third L3 level along the right lateral recess,likely representing a right subarticular disc extrusion. This correspondsto the indeterminate focus seen on the prior MR lumbar spine dated April. There is no leptomeningeal enhancement. Soft Tissue: Please see above. Other Findings: None. Findings by level: T12-L1: No spinal or foraminal stenosis. L1-L2: No spinal or foraminal stenosis. L2-L3: Laminectomy changes are seen. There is diffuse disc bulge withsuperimposed 1 x 1 x 1 cm right subarticular disc extrusion extending tolower third L3 level, corresponding to the indeterminate focus seen on theprior study. There is bilateral facet hypertrophy and ligamentum flavumthickening at this level as well. Overall, there is moderate to severespinal canal stenosis at L2-L3 level, not significantly changed comparedto prior study. There is severe right and moderate left neural foraminanarrowing. L3-L4: Laminectomy changes are seen. There is diffuse disc bulge withbilateral facet hypertrophy, resulting in [id number] spinal canalstenosis. There is severe bilateral neural foramina narrowing. Thesefindings are not significantly changed compared to prior study. L4-L5: There is diffuse disc bulge with bilateral facet hypertrophy. Thereis mild spinal canal stenosis. There is moderate bilateral neural foraminanarrowing, unchanged. L5-S1: Diffuse disc bulge with bilateral facet hypertrophy. There is mildspinal canal stenosis. Severe bilateral neural foramina narrowing is seen.Overall, degenerative disc disease changes have not significantlychanged. IMPRESSION: 1. Status post L2-L3 and L3-L4 laminectomy changes as detailed above. Nodrainable fluid collection or abscess formation is identified in thepostoperative bed. 2. Redemonstration of marked degenerative disc disease changes at L2-D3tfzoj with a 1 x 1 x 1 cm right subarticular disc extrusion extending fromL2-L3 level through lower third L3 level. Superimposed with thedegenerative disc disease changes, there is moderate to severe spinalcanal stenosis at L2-L3. Neurosurgical evaluation is recommended. 3. Additional degenerative disc disease changes of the lumbar spine asdetailed above. A clinically significant result was initiated on 06/25/2025 1:32 PM,Message ID [id number]. us Reilly A Bigda DO IMG MR XSPECIALTY Final Result * Tissue transglutaminase IgA (06/14/2025 12:20 PM EDT) TTG IGA ANTIBODY <1.2 <4.0 (Negative) U/mL [facility] MED/PATH [address] Blood 06/14/2025 12:2 0 PM EDT 06/14/2025 12:22 PM EDT JanelleMae Gambino ORDNANCE TRUCK INSTALLATION SUPERVISOR LAB BLOOD ORDERABLES Daiana l Result [facility] [address] [place] [address] * Immunoglobulin A (06/14/2025 12:20 PM EDT) IgA 162 70 - 400 mg/dL [facility] Blood 06/14/2025 12:2 0 PM EDT 06/14/2025 12:22 PM EDT Janelle Fouzia Gambino ORDNANCE TRUCK INSTALLATION SUPERVISOR LAB BLOOD ORDERABLES Daiana l Result Performing Organization Address [facility]/ZIP Co de Phone Number [address] [address] * MRI LUMBAR SPINE (NEURO) WITHOUT CONTRAST (05/05/2025 4:45 PM EDT) MGB IMG LICENSED FUNERAL DIRECTOR COMMENT Large extruded disc material vs. underlying epidural lesion @ L2-L3 level. [facility] MGB IMG RECOMMENDATION COMMENT Extruded disc vs. underlying lesion @ L2-L3 level [facility] Anatomical Region Laterality Modality L-spine Magnetic Resonan ce 05/09/2025 8:46 AM EDT Impressions 05/09/2025 9:12 AM EDT 1. Postsurgical changes related to laminectomy at L2-L4 levels with interval resection of left lateral epidural lesion at L3 level. Soft tissue edema is noted in the paraspinal/interspinous region at L3 level likely representing postsurgical changes. No organized fluid collection. 2. There is marked interval worsening of degenerative changes at L2-3 level, now with moderate to severe intervertebral disc height loss and marked bone marrow edema around L2-3 level. There is also prevertebral and right paravertebral soft tissue edema without organized fluid collection. Although these likely represent degenerative changes, infectious process can have a similar appearance and clinical correlation is advised. 3. There is an ill-defined heterogeneous material in the right ventral epidural space extending from L2-3 disc space to lower 2/3rd of L3 vertebral level, which may represent extruded disc material. This along with facet degenerative changes contribute to moderate spinal canal narrowing and severe right foraminal narrowing at L2-3 level. 4. Additional severe degenerative changes of the lumbar spine are seen as described with multiple areas of high-grade foraminal narrowing. RECOMMENDATIONS: MRI lumbar spine with and without contrast may be helpful in further evaluation for possible underlying lesion (re: impression #3). A clinically significant result was initiated on 05/09/2025 9:11 AM, Message ID [id number]. Narrative 05/09/2025 9:12 AM EDT MRI LUMBAR SPINE (NEURO) WITHOUT CONTRAST Referring clinician's provided indication for this examination in Epic: Outside Radiology Order; right leg weakness TECHNIQUE: MRI LUMBAR SPINE (NEURO) WITHOUT CONTRAST COMPARISON: MRI LUMBAR SPINE (BONE) WITH AND WITHOUT CONTRAST FINDINGS: Motion degraded exam. Alignment and Vertebrae: The usual lumbar lordosis is preserved. There is minimal retrolisthesis of L2 on L3, L3 on L4, and L5 on S1. The retrolisthesis at L2 on L3 is worse when compared to June 2023. No acute compression fracture. Marrow: There is marked bone marrow edema involving L2 and L3 vertebral bodies and bilateral pedicles of L3. Discs and Endplates: Moderate and severe intervertebral disc height loss and loss of normal T2 disc signal are seen along with endplate degenerative changes. Conus: The conus terminates at L2 level. No evidence of abnormal signal in the visualized spinal cord. Soft Tissue: Interval resection of large left lateral epidural lesion at L3 level is noted. There is marked soft tissue edema involving the right psoas muscle spanning L1- L5 levels. There is also mild prevertebral soft tissue edema at L2-L3 level. Paraspinal and interspinous soft tissue edema is noted at L3 level at the surgical site. No organized fluid collection. Findings by level: T12-L1: No spinal canal or foraminal narrowing. L1-L2: No spinal canal or foraminal narrowing. L2-L3: Status post laminectomy. Diffuse disc bulge is noted. There is an ill- defined heterogeneous material in the right ventral epidural space extending from L2-3 disc level to lower to thirds 2/3 of the L3 vertebral level. This may represent extruded disc material. There is also severe bilateral facet arthropathy at this level. These contribute to moderate spinal canal narrowing and severe right and mild left foraminal narrowing. L3-L4: Status post laminectomy. Diffuse disc bulge and severe bilateral facet arthropathy are seen. These contribute to mild to moderate spinal canal narrowing and severe bilateral foraminal narrowing. L4-L5: Posterior disc osteophyte complex and severe bilateral facet arthropathy are seen. These contribute to mild spinal canal narrowing and moderate right and mild left foraminal narrowing. L5-S1: Posterior disc osteophyte complex and severe bilateral facet arthropathy are seen. These contribute to mild spinal canal narrowing and severe bilateral foraminal narrowing. Procedure Note Cayden Perera MD - 05/09/2025 MRI LUMBAR SPINE (NEURO) WITHOUT CONTRAST Referring clinician's provided indication for this examination in Epic:Outside Radiology Order; right leg weakness TECHNIQUE: MRI LUMBAR SPINE (NEURO) WITHOUT CONTRAST COMPARISON: MRI LUMBAR SPINE (BONE) WITH AND WITHOUT [id number] FINDINGS: Motion degraded exam. Alignment and Vertebrae: The usual lumbar lordosis is preserved. There isminimal retrolisthesis of L2 on L3, L3 on L4, and L5 on S1. Theretrolisthesis at L2 on L3 is worse when compared to June 2023. No acute compression fracture. Marrow: There is marked bone marrow edema involving L2 and L3 vertebralbodies and bilateral pedicles of L3. Discs and Endplates: Moderate and severe intervertebral disc height lossand loss of normal T2 disc signal are seen along with endplatedegenerative changes. Conus: The conus terminates at L2 level. No evidence of abnormal signal inthe visualized spinal cord. Soft Tissue: Interval resection of large left lateral epidural lesion atL3 level is noted. There is marked soft tissue edema involving the right psoas musclespanning L1-L5 levels. There is also mild prevertebral soft tissue edemaat L2-L3 level. Paraspinal and interspinous soft tissue edema is noted atL3 level at the surgical site. No organized fluid collection. Findings by level: T12-L1: No spinal canal or foraminal narrowing. L1-L2: No spinal canal or foraminal narrowing. L2-L3: Status post laminectomy. Diffuse disc bulge is noted. There is anill- defined heterogeneous material in the right ventral epidural spaceextending from L2-3 disc level to lower to thirds 2/3 of the L3 vertebrallevel. This may represent extruded disc material. There is also severebilateral facet arthropathy at this level. These contribute to moderatespinal canal narrowing and severe right and mild left foraminalnarrowing. L3-L4: Status post laminectomy. Diffuse disc bulge and severe bilateralfacet arthropathy are seen. These contribute to mild to moderate spinalcanal narrowing and severe bilateral foraminal narrowing. L4-L5: Posterior disc osteophyte complex and severe bilateral facetarthropathy are seen. These contribute to mild spinal canal narrowing andmoderate right and mild left foraminal narrowing. L5-S1: Posterior disc osteophyte complex and severe bilateral facetarthropathy are seen. These contribute to mild spinal canal narrowing andsevere bilateral foraminal narrowing. IMPRESSION: 1. Postsurgical changes related to laminectomy at L2-L4 levels withinterval resection of left lateral epidural lesion at L3 level. Softtissue edema is noted in the paraspinal/interspinous region at L3 levellikely representing postsurgical changes. No organized fluid collection. 2. There is marked interval worsening of degenerative changes at L2-3level, now with moderate to severe intervertebral disc height loss andmarked bone marrow edema around L2-3 level. There is also prevertebral andright paravertebral soft tissue edema without organized fluid collection.Although these likely represent degenerative changes, infectious processcan have a similar appearance and clinical correlation is advised. 3. There is an ill-defined heterogeneous material in the right ventralepidural space extending from L2-3 disc space to lower 2/3rd of U1xfymfdfgh level, which may represent extruded disc material. This alongwith facet degenerative changes contribute to moderate spinal canalnarrowing and severe right foraminal narrowing at L2-3 level. 4. Additional severe degenerative changes of the lumbar spine are seen asdescribed with multiple areas of high-grade foraminal narrowing. RECOMMENDATIONS: MRI lumbar spine with and without contrast may be helpful in furtherevaluation for possible underlying lesion (re: impression #3). A clinically significant result was initiated on 05/09/2025 9:11 AM,Message ID [id number]. us Reilly A Mary Janeda DO IMG MR XSPECIALTY Final Result * (ABNORMAL) Comprehensive metabolic panel (12/26/2024 7:19 AM EST) SODIUM 141 133 - 146 mmol/L [facility] POTASSIUM 3.9 3.3 - 5.1 mmol/L [facility] CHLORIDE 102 96 - 108 mmol/L [facility] CO2 28 21 - 35 mmol/L [facility] BUN 19 6 - 19 mg/dL [facility] CREATININE 0.80 0.5 - 1.5 mg/dL [facility] GLUCOSE 133(H) 70 - 99 mg/dL [facility] ALBUMIN 4.0 3.9 - 4.8 g/dL [facility] TOTAL PROTEIN 7.1 6.5 - 8.0 g/dL [facility] CALCIUM 9.8 8.4 - 10.3 mg/dL [facility] ALKALINE PHOSPHATASE 106 39 - 117 U/L [facility] TOTAL BILIRUBIN 0.7 0.0 - 1.2 mg/dL [facility] AST 17 0 - 37 U/L [facility] ALT 17 0 - 40 U/L [facility] GLOBULIN 3.1 1 - 4.8 g/dL [facility] EGFR 75 >59 mL/min/1.7 3m2 [facility] Comment:Estimated glomerular filtration rate calculated using the CKD-EPI refit equation. ANION GAP 15 10 - 20 mmol/L [facility] Blood 12/26/2024 7:19 AM EST 12/26/2024 7:24 AM EST us Reilly A Mary Janeda DO LAB BLOOD ORDERABLES Final Resul t [facility] [address] [place] [address] * (ABNORMAL) Hemoglobin A1c (12/26/2024 7:19 AM EST) HEMOGLOBIN A1C 6.9(H) 4.3 - 5.8 % [facility] Blood 12/26/2024 7:19 AM EST 12/26/2024 7:24 AM EST us Reilly A Bigda DO LAB BLOOD ORDERABLES Final Resul t Performing Organization Address City/[facility]/ZIP Co de Phone Number [address] [address] * Lipid panel (12/26/2024 7:19 AM EST) HDL 54 mg/dL [facility] Comment: Interpretation <40 mg/dL: Low HDL cholesterol (major risk factor for CHD) Greater than or equal to 60 mg/dL: High HDL cholesterol ( negative risk factor for CHD) HDL - cholesterol is affected by a number of factors, e.g. smoking, excerise, hormones, sex and age. CHOLESTEROL 177 0 - 240 mg/dL [facility] TRIGLYCERIDES 119 30 - 160 mg/dL [facility] LDL 99 50 - 129 mg/dL [facility] Comment: LDL levels in terms of risk for coronary heart disease: <100 mg/dL: Optimal 100-129 mg/dL: Near or above optimal 130-159 mg/dL: Borderline high 160-189 mg/dL: High >190 mg/dL: Very High CARDIAC RISK RATIO 3.3 3.3 - 4.[address] [facility] Blood 12/26/2024 7:19 AM EST 12/26/2024 7:24 AM EST us Reilly A Katie DO LAB BLOOD ORDERABLES Final Resul t Performing Organization Address City/[facility] Co de Phone Number [address] [address] * Microalbumin/creatinine ratio, random urine (10/22/2017 7:32 AM EST) URINE MICROALBUMIN 0.6 0 - 2.3 mg/dL [facility] URINE CREATININE 215 mg/dL [facility] MICROALB/CRE RATIO NOT CALCULATED 0 - 20 mg/g Cre [facility] Comment:due to Microalbumin <1.2 Urine (Urine) 10/22/2017 7:3 2 AM EST 10/22/2017 7:37 AM EST Reilly Ward DO URINE ORDERABLES Edited Result - Final [address] [id number] from Last 3 Months or Most Recently Relevant to Health Maintenance Insurance [employer] Care Teams Showroom Manager Relationship Specialty Start Date End Date Reilly Ward DO [email or web address] PCP - General Internal Medicine 06/30/22 Additional Source Comments The information contained in this document represents components of the legal health record. It is not the complete legal health record.[facility]
--- OUTSIDE RECORDS SUMMARY | 2025-08-03 14:38 | XMS_ITS | Encounter Summary ---
Author Organization [facility] Address [address] [address] Phone Care Team Providers Care Kidney Puller Name Role Phone Clem Wilson DO Primary Care Provider [phone] Pcp, Unknown Primary Care Provider UnavailClem Gee DO Primary Care Provider [phone] Encounter Details Date Type Department Care Team (Late st Contact Info) Description 02/15/2018 Ancillary Orders [facility], X-Ray - [facility] [address] [place] [address] Clem Wilson DO [address] [facility] [place] [address] [place] [address] [email or web address] Diffuse arthralgia Social History Tobacco Use Types Packs/Day Years Used Date Smoking Tobacco: Every Day Smokeless Tobacco: Never Alcohol Use Standard Drinks/Week Comments No 0 (1 standard drink = 0.6 oz pur e alcohol) Comments Unknown Sex and Gender Information Value Date Recorded Sex Assigned at Female 12/01/2022 8:55 AM EST Legal Sex Female 10:08 PM EDT Gender Identity Female 12/01/2022 8:55 AM EST Sexual Orientation Straight 12/01/2022 8: 55 AM EST documented as of this encounter Plan of Treatment Not on file documented as of this encounter Results * XR HAND 3 OR MORE VIEWS (BILATERAL) (02/15/2018 1:12 PM EDT) Anatomical Region Laterality Modality Hand Left Radiographic Mona ging 02/15/2018 1:26 PM EDT Impressions 02/15/2018 1:29 PM EDT Extensive findings of osteoarthritis noted in the left and right hands and wrists as detailed above. S/S: Diffuse arthralgia, osteoarthritis bilateral hands and wrists POS - [id number] Narrative 02/15/2018 1:29 PM EDT COMPARISON: None FINDINGS: 3 views of each hand are obtained. On the left there are prominent degenerative changes evident at the base of first metacarpal and in the articulation of the navicular bone with the distal carpal row. The findings are consistent with osteoarthritis. Degenerative changes are also seen in the DIP joints worse in the the left thumb, second and third fingers. No erosive arthropathy is seen. On the right there are similar findings present with degenerative changes evident at the base of first metacarpal and in the distal articulation of the navicular bone with the distal carpal row. DIP joint degenerative changes are noted and again are most prominent in the right thumb and second and third fingers. PIP degenerative changes are also noted particularly in the third finger. No erosive arthropathy is seen. Procedure Note Riley Turcios MD - 02/15/2018 COMPARISON: None FINDINGS: 3 views of each hand are obtained. On the left there are prominent degenerative changes evident at the baseof first metacarpal and in the articulation of the navicular bone with thedistal carpal row. The findings are consistent with osteoarthritis.Degenerative changes are also seen in the DIP joints worse in the the leftthumb, second and third fingers. No erosive arthropathy is seen. On the right there are similar findings present with degenerative changesevident at the base of first metacarpal and in the distal articulation ofthe navicular bone with the distal carpal row. DIP joint degenerativechanges are noted and again are most prominent in the right thumb andsecond and third fingers. PIP degenerative changes are also notedparticularly in the third finger. No erosive arthropathy is seen. IMPRESSION: Extensive findings of osteoarthritis noted in the left and right hands andwrists as detailed above. S/S: Diffuse arthralgia, osteoarthritis bilateral hands and wrists POS - [id number] us Clem Wilson DO IMG XR UPPER EXTREMITY Final Res ult documented in this encounter Visit Diagnoses Diagnosis Diffuse arthralgia Diffuse arthralgia documented in this encounter Care Teams Kidney Puller Relationship Specialty Start Date End Date Clem Wilson DO [email or web address] PCP - General 09/16/17 10/08/20 Pcp, Unknown PCP - General 10/09/20 06/29/22 Clem Wilson DO [email or web address] PCP - General Internal Medicine 06/30/22 documented as of this encounter Additional Source Comments The information contained in this document represents components of the legal health record. It is not the complete legal health record.[facility]
--- OUTSIDE RECORDS SUMMARY | 2025-08-03 14:38 | XMS_ITS | Encounter Summary ---
Author Organization [facility] Address [address] [facility] [address] [place] [address] Phone Care Team Providers Care Radiological Technician Name Role Phone Clem Wilson Primary Care Provider [phone] Encounter Details Date Type Department Care Team (Late st Contact Info) Description 05/30/2025 Procedure Pass [facility] [address] [place] [address] Social History Tobacco Use Types Packs/Day Years [...] documented as of this encounter Visit Diagnoses Not on filedocumented in this encounter Care Teams Radiological Technician Relationship Specialty Start Date End Date Clem Wilson DO [email or web address] PCP - General Internal Medicine 06/30/22 documented as of this encounter Additional Source Comments The information contained in this document represents components of the legal health record. It is not the complete legal health record.[facility]
--- OUTSIDE RECORDS SUMMARY | 2025-08-03 14:38 | XMS_ITS | Encounter Summary ---
Author Organization [facility] Address [address] [address] Phone Care Team Providers Care Composite Laminator Name Role Phone Clem Wilson Primary Care Provider Reason for Referral * MRI/CAT Scan - Closed Specialty Diagnoses / Procedures Referred By Solitario gonzales Referred To Contact Radiology Diagnoses Intervertebral disc disorders with radiculopathy, thoracic region Procedures MRI Thoracic Spine CHG MRI, DORSAL SPINE Yana Greenfield NP Phone: tel: fax: [email or web address] Referral ID Status Reason Start Date Expiration Date Visits Re quested Visits Authorized [id number] Closed 03/05/2023 04/04/2023 1 1 Encounter Details Date Type Department Care Team (Latest Contact Info) Description 03/08/2023 Transcribe Orders Virtual Department [address] [place] [address] Yana Greenfield NP [address] [place] [phone] [email or web address] Intervertebral disc disorders with radiculopathy, thoracic region (Primary Dx) Social History Tobacco Use Types Packs/Day Years [...] documented as of this encounter Results * MRI THORACIC SPINE (BONE) WITHOUT CONTRAST (04/03/2023 2:46 PM EDT) Anatomical Region Laterality Modality T-spine Magnetic Resonan ce 04/06/2023 9:03 AM EDT Impressions 04/06/2023 5:30 PM EDT No definite focal cause for the reported symptoms identified in the thoracic spine. No evidence of compression fracture, marrow edema, or nerve root impingement. Narrative 04/06/2023 5:30 PM EDT MRI THORACIC SPINE (BONE) WITHOUT CONTRAST TECHNIQUE: MRI THORACIC SPINE (BONE) WITHOUT CONTRAST Multi-sequence, multi-planar MRI of the thoracic spine was performed without intravenous contrast. COMPARISON: None FINDINGS: THORACIC SPINE: Alignment and Vertebrae: Normal alignment. No compression fracture. Marrow: No bone marrow replacing lesion. Discs and Endplates: Severe disc space narrowing at T7-T8 and moderate disc space narrowing at T6-T7, mild elsewhere. Scattered marginal osteophyte formation anteriorly in the midthoracic spine. Posterior disc osteophyte complex eccentric to the left at T6-T7, which mildly indents the left ventral hemicord, but does not result in significant spinal canal stenosis. No evidence of significant foraminal stenosis at any level. Spinal Cord: Normal. No spinal cord compression or signal abnormality. Soft Tissue: Normal. No prevertebral edema. Other Findings: None. Procedure Note Graham Brooks MD - 04/06/2023 MRI THORACIC SPINE (BONE) WITHOUT CONTRAST TECHNIQUE: MRI THORACIC SPINE (BONE) WITHOUT CONTRAST Multi-sequence, multi-planar MRI of the thoracic spine was performedwithout intravenous contrast. COMPARISON: None FINDINGS: THORACIC SPINE: Alignment and Vertebrae: Normal alignment. No compression fracture. Marrow: No bone marrow replacing lesion. Discs and Endplates: Severe disc space narrowing at T7-T8 and moderatedisc space narrowing at T6-T7, mild elsewhere. Scattered marginalosteophyte formation anteriorly in the midthoracic spine. Posterior discosteophyte complex eccentric to the left at T6-T7, which mildly indentsthe left ventral hemicord, but does not result in significant spinal canalstenosis. No evidence of significant foraminal stenosis at any level. Spinal Cord: Normal. No spinal cord compression or signal abnormality. Soft Tissue: Normal. No prevertebral edema. Other Findings: None. IMPRESSION: No definite focal cause for the reported symptoms identified in thethoracic spine. No evidence of compression fracture, marrow edema, ornerve root impingement. Yana Greenfield PROCESS DEVELOPMENT MANAGER IMG MR XSPECIALTY Final Result documented in this encounter Visit Diagnoses Diagnosis Intervertebral disc disorders with radiculopathy, thoracic region- Primary Intervertebral disc disorders with radiculopathy, thoracic region documented in this encounter Care Teams Composite Laminator Relationship Specialty Start Date End Date Clem Wilson DO [email or web address] PCP - General Internal Medicine 06/30/22 documented as of this encounter Additional Source Comments The information contained in this document represents components of the legal health record. It is not the complete legal health record.[facility]
--- OUTSIDE RECORDS SUMMARY | 2025-08-03 14:38 | XMS_ITS | Encounter Summary ---
Author Organization [facility] Address [address] [place] [address] Phone Care Team Providers Care Dicer Machine Operator Name Role Phone Clem Wilson DO Primary Care Provider [phone] Pcp, Unknown Primary Care Provider UnavailClem Gee DO Primary Care Provider [phone] Encounter Details Date Type Department Care Team (Late st Contact Info) Description 10/07/2017 Ancillary Orders [facility] [address] [place] [address] [phone] Linn Ramesh PA-C [address] [place] [address] [facility] [place], [place] [id number] [email or web address] Social History Tobacco Use Types Packs/Day Years [...] on filedocumented in this encounter Care Teams Dicer Machine Operator Relationship Specialty Start Date End Date Clem Wilson DO [email or web address] PCP - General 09/16/17 10/08/20 Pcp, Unknown PCP - General 10/09/20 06/29/22 Clem Wilson DO [email or web address] PCP - General Internal Medicine 06/30/22 documented as of this encounter Additional Source Comments The information contained in this document represents components of the legal health record. It is not the complete legal health record.[facility]
--- OUTSIDE RECORDS SUMMARY | 2025-08-03 14:38 | XMS_ITS | Encounter Summary ---
Author Organization [facility] Address [address] [employer] [facility] [address] [place] [address] Phone Care Team Providers Care Retail Equipment Associate Name Role Phone Clem Wilson Primary Care Provider [phone] Encounter Details Date Type Department Care Team (Late st Contact Info) Description 09/22/2024 Procedure Pass [facility], [facility] [address] [place] [address] Social History Tobacco Use Types Packs/Day Years [...] on filedocumented in this encounter Care Teams Retail Equipment Associate Relationship Specialty Start Date End Date Clem Wilson DO [email or web address] PCP - General Internal Medicine 06/30/22 documented as of this encounter Additional Source Comments The information contained in this document represents components of the legal health record. It is not the complete legal health record.[facility]
--- OUTSIDE RECORDS SUMMARY | 2025-08-03 14:38 | XMS_ITS | Encounter Summary ---
Author Organization [facility] Address [address] [employer] [facility] [address] [place] [address] Phone Care Team Providers Care Tenoner Operator Name Role Phone Clem Wilson Primary Care Provider [phone] Encounter Details Date Type Department Care Team (Late st Contact Info) Description 04/16/2025 Procedure Pass [facility], [facility] [address] [place] [address] Social History Tobacco Use Types Packs/Day Years [...] on filedocumented in this encounter Care Teams Tenoner Operator Relationship Specialty Start Date End Date Clem Wilson DO [email or web address] PCP - General Internal Medicine 06/30/22 documented as of this encounter Additional Source Comments The information contained in this document represents components of the legal health record. It is not the complete legal health record.[facility]
--- OUTSIDE RECORDS SUMMARY | 2025-08-03 14:38 | XMS_ITS | Encounter Summary ---
Author Organization [facility] Address [address] [address] Phone Care Team Providers Care Senior Instructional Designer Name Role Phone Clem Wilson DO Primary Care Provider [phone] Pcp, Unknown Primary Care Provider Unavailabl Clem Royal DO Primary Care Provider [phone] Encounter Details Date Type Department Care Team (Late st Contact Info) Description 10/22/2017 Transcribe Orders [facility] [address] [place] [address] Clem Wilson DO [address] [facility] [address] [place], [place] [id number] [email or web address] Diabetes 1.5, managed as type 2 (Primary Dx) Social History Tobacco Use Types [...] on file documented as of this encounter Procedures Procedure Name Priority Date/Time Associated Diagnosis Comments MICROALBUMIN/CREATIN INE RATIO, RANDOM URINE Routine 10/22/2017 7:32 AM EST Diabetes 1.5, managed as type 2 HEMOGLOBIN A1C Routine 10/22/2017 7:32 AM EST Diabetes 1.5, managed as type 2 LIPID PANEL Routine 10/22/2017 7:32 AM EST Diabetes 1.5, managed as type 2 documented in this encounter Results * Microalbumin/creatinine ratio, random urine (10/22/2017 7:32 AM EST) URINE MICROALBUMIN 0.6 0 - 2.3 mg/dL [facility] URINE CREATININE 215 mg/dL [facility] MICROALB/CRE RATIO NOT CALCULATED 0 - 20 mg/g Cre [facility] Comment:due to Microalbumin <1.2 Urine (Urine) 10/22/2017 7:3 2 AM EST 10/22/2017 7:37 AM EST us Clem A Bigda DO URINE ORDERABLES Edited Result - Final Performing Organization Address [facility]/ZIP Co de Phone Number [address] [address] * (ABNORMAL) Hemoglobin A1c (10/22/2017 7:32 AM EST) HEMOGLOBIN A1C 5.9(H) 4.3 - 5.8 % [facility] Blood 10/22/2017 7:32 AM EST 10/22/2017 7:37 AM EST us Clem A Bigda DO LAB BLOOD ORDERABLES Edited Resu lt - Final Performing Organization Address [facility]/ZIP Co de Phone Number [address] [address] * (ABNORMAL) Lipid panel (10/22/2017 7:32 AM EST) HDL 45 mg/dL [facility] Comment: Interpretation: Risk Level Females Decreased >55mg/dL Average 50-55 mg/dL Increased <50 mg/dL CHOLESTEROL 154 0 - 240 mg/dL [facility] TRIGLYCERIDES 187(H) 30 - 160 mg/dL [facility] LDL 72 50 - 129 mg/dL [facility] Comment: LDL levels in terms of risk for coronary heart disease: <100 mg/dL: Optimal 100-129 mg/dL: Near or above optimal 130-159 mg/dL: Borderline high 160-189 mg/dL: High >190 mg/dL: Very High CARDIAC RISK RATIO 3.4 3.3 - 4.4 [facility] Blood 10/22/2017 7:32 AM EST 10/22/2017 7:37 AM EST us Clem Wilson DO LAB BLOOD ORDERABLES Edited Resu lt - Final [facility] [address] [place] [address] documented in this encounter Visit Diagnoses Diagnosis Diabetes 1.5, managed as type 2- Primary documented in this encounter Care Teams Senior Instructional Designer Relationship Specialty Start Date End Date Clem Wilson DO PCP - General 09/16/17 10/08/20 Pcp, Unknown PCP - General 10/09/20 06/29/22 Clem Wilson DO PCP - General Internal Medicine 06/30/22 documented as of this encounter Additional Source Comments The information contained in this document represents components of the legal health record. It is not the complete legal health record.[facility]
--- OUTSIDE RECORDS SUMMARY | 2025-08-03 14:38 | XMS_ITS | Encounter Summary ---
Author Organization [facility] Address [address] [employer] [address] [place] [address] Phone Care Team Providers Care Brake Operator Heavy Duty Name Role Phone Clem Wilson DO Primary Care Provider [phone] Encounter Details Date Type Department Care Team ([facility] st Contact Info) Description 12/29/2024 Transcribe Orders Virtual Department [address] [place] [address] Clem Wilson DO [address] [facility] [place] [address] [place] [address] [email or web address] Low back pain, unspecified back pain laterality, unspecified chronicity, unspecified whether sciatica present (Primary Dx) Social History Tobacco Use Types [...] as of this encounter Results * XR Sacrum and Coccyx (01/12/2025 2:01 PM EST) Anatomical Region Laterality Modality L-spine Computed Radiogr aphy 01/13/2025 1:38 PM EST Impressions 01/13/2025 1:40 PM EST No displaced fracture or dislocation. Degenerative changes. Narrative 01/13/2025 1:40 PM EST XR SACRUM AND COCCYX Referring clinician's provided indication for this examination in [facility]: Outside Radiology Order; Low back pain, unspecified COMPARISON: XR HIP 2 VW LEFT PLUS PELVIS FINDINGS: No displaced fracture. Degenerative changes of the bilateral sacroiliac joints. No sacroiliitis. Degenerative changes of the imaged lumbar spine and pubic symphysis. Vascular calcifications. Procedure Note Kevin Sosa MD - 01/13/2025 XR SACRUM AND COCCYX Referring clinician's provided indication for this examination in [facility]:Outside Radiology Order; Low back pain, unspecified COMPARISON: XR HIP 2 VW LEFT PLUS PELVIS FINDINGS: No displaced fracture. Degenerative changes of the bilateral sacroiliacjoints. No sacroiliitis. Degenerative changes of the imaged lumbar spineand pubic symphysis. Vascular calcifications. IMPRESSION: No displaced fracture or dislocation. Degenerative changes. Clem Thornton Katie MARQUEZ IMG XR SPINE Final Result documented in this encounter Visit Diagnoses Diagnosis Low back pain, unspecified back pain laterality, unspecified chronicity, unspecified whether sciatica present- Primary Low back pain, unspecified back pain laterality, unspecified chronicity, unspecified whether sciatica present documented in this encounter Care Teams Brake Operator Heavy Duty Relationship Specialty Start Date End Date Clem Wilson DO [email or web address] PCP - General Internal Medicine 06/30/22 documented as of this encounter Additional Source Comments The information contained in this document represents components of the legal health record. It is not the complete legal health record.[facility]
--- OUTSIDE RECORDS SUMMARY | 2025-08-03 14:38 | XMS_ITS | Encounter Summary ---
Author Organization [facility] Address [address] [address] Phone Care Team Providers Care Health Advisor Name Role Phone Clem Wilson Primary Care Provider [phone] Encounter Details Date Type Department Care Team (Late st Contact Info) Description 07/07/2023 Procedure Pass [facility], [facility] [address] [place] [address] Social History Tobacco Use Types Packs/Day Years [...] with a working camera? Not on file Comments No Sex and Gender Information Value [...] on filedocumented in this encounter Care Teams Health Advisor Relationship Specialty Start Date End Date Clem Wilson DO [email or web address] PCP - General Internal Medicine 06/30/22 documented as of this encounter Additional Source Comments The information contained in this document represents components of the legal health record. It is not the complete legal health record.[facility]
--- OUTSIDE RECORDS SUMMARY | 2025-08-03 14:38 | XMS_ITS | Encounter Summary ---
Author Organization [facility] Address [address] [address] Phone Care Team Providers Care Farm Operations Manager Name Role Phone Mary JaneClem bernardo Primary Care Provider [phone] Reason for Referral * MRI/CAT Scan - Closed Specialty Diagnoses / Procedures Referred By Solitario gonzales Referred To Contact Radiology Diagnoses Lumbar radiculopathy Procedures MRI Lumbar Spine CHG MRI, LUMBAR SPINE CHG MRI, LUMBAR SPINE COMBO Yana Greenfield NP Phone: tel: fax: [email or web address] Referral ID Status Reason Start Date Expiration Date Visits Re quested Visits Authorized [id number] Closed 07/29/2023 07/29/2023 1 1 Encounter Details Date Type Department Care Team (Latest Contact Info) Description 07/07/2023 Transcribe Orders Virtual Department [address] [place] [address] Yana Greenfield NP [address] [place] [phone] [email or web address] Lumbar radiculopathy (Primary Dx) Social History Tobacco Use Types [...] as of this encounter Results * MRI LUMBAR SPINE (BONE) WITH AND WITHOUT CONTRAST (07/29/2023 2:44 PM EDT) Anatomical Region Laterality Modality L-spine Magnetic Resonan ce 07/29/2023 4:45 PM EDT Impressions 07/29/2023 6:04 PM EDT 1. 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 This compresses and displaces the thecal sac the right and results in severe central canal stenosis at L3-L4, moderate central canal stenosis at L2-L3 and severe narrowing of the left neuroforamen at L3-L4. Surgical consultation could be considered. If no intervention planned this could be followed by MRI. 2. Severe degenerative disc and endplate changes at L3-L4, L4-L5 and L5-S1. Severe facet arthropathy from L2-L3 to L5-S1. 3. Moderate-severe neuroforaminal narrowing at L5-S1 on the left and, to a slightly lesser degree, contralaterally at this level. Narrative 07/29/2023 6:04 PM EDT MRI LUMBAR SPINE (BONE) WITH AND WITHOUT CONTRAST HISTORY: Lower back pain, left hip weakness. TECHNIQUE: MRI LUMBAR SPINE (BONE) WITH AND WITHOUT CONTRAST Multi-sequence, multi-planar MRI of the lumbar spine was performed without and with intravenous contrast. COMPARISON: Lumbar spine x-rays from 03/25/2015. FINDINGS: LUMBAR SPINE: Alignment and Vertebrae: No compression fractures. Minimal retrolisthesis of L3 on L4. Otherwise, no subluxations. Marrow: No suspicious marrow signal abnormalities. Discs and Endplates: Severe degenerative disc and endplate changes at L3-L4, L4- L5 and L5-S1. Loss of T2 signal within the disks more proximally consistent with desiccation. Conus: Normal. Soft Tissue: No evidence of prevertebral edema or paravertebral masses. Other Findings: There is a heterogeneous mass with T1 hyperintense components within the epidural space extending from L2-L3 to L3-L4. The mass measures approximately 3.6 cm (CC) x 1.6 cm (AP) x 1.5 cm (TRV). The epicenter is to the left of midline. A portion of the mass is intimately associated with the L3-L4 facet. The mass compresses and displaces the thecal sac to the right. There is severe central canal stenosis at the level of L3-L4. Findings by level: T12-L1: Minimal bulging of the disc. No central canal stenosis or significant neuroforaminal narrowing. L1-L2: No focal disc abnormality. No central canal stenosis or neuroforaminal narrowing. L2-L3: Minimal bulging of the disc. Moderate-severe bilateral facet arthropathy with thickening of the ligamentum flavum. No significant neuroforaminal narrowing. L3-L4: Broad-based posterior osteophytes and severe facet arthropathy with thickening of the ligamentum flavum. Severe narrowing of the left neuroforamen by the epidural mass. Mild-moderate neuroforaminal narrowing on the right. L4-L5: Small broad-based osteophytes. Severe facet arthropathy but no central canal stenosis. Mild-moderate neuroforaminal narrowing on the right and mild neuroforaminal narrowing on the left. L5-S1: Broad-based disc-osteophyte complex. Severe facet arthropathy. No central canal stenosis. Moderate-severe narrowing of the left neuroforamen. Moderate narrowing of the right neuroforamen. Procedure Note Brody Mcdaniel MD - 07/29/2023 MRI LUMBAR SPINE (BONE) WITH AND WITHOUT CONTRAST HISTORY: Lower back pain, left hip weakness. TECHNIQUE: MRI LUMBAR SPINE (BONE) WITH AND WITHOUT CONTRAST Multi-sequence, multi-planar MRI of the lumbar spine was performed withoutand with intravenous contrast. COMPARISON: Lumbar spine x-rays from 03/25/2015. FINDINGS: LUMBAR SPINE: Alignment and Vertebrae: No compression fractures. Minimal retrolisthesisof L3 on L4. Otherwise, no subluxations. Marrow: No suspicious marrow signal abnormalities. Discs and Endplates: Severe degenerative disc and endplate changes atL3-L4, L4- L5 and L5-S1. Loss of T2 signal within the disks more proximallyconsistent with desiccation. Conus: Normal. Soft Tissue: No evidence of prevertebral edema or paravertebral masses. Other Findings: There is a heterogeneous mass with T1 hyperintensecomponents within the epidural space extending from L2-L3 to L3-L4. Themass measures approximately 3.6 cm (CC) x 1.6 cm (AP) x 1.5 cm (TRV). Theepicenter is to the left of midline. A portion of the mass is intimatelyassociated with the L3-L4 facet. The mass compresses and displaces thethecal sac to the right. There is severe central canal stenosis at thelevel of L3-L4. Findings by level: T12-L1: Minimal bulging of the disc. No central canal stenosis orsignificant neuroforaminal narrowing. L1-L2: No focal disc abnormality. No central canal stenosis orneuroforaminal narrowing. L2-L3: Minimal bulging of the disc. Moderate-severe bilateral facetarthropathy with thickening of the ligamentum flavum. No significantneuroforaminal narrowing. L3-L4: Broad-based posterior osteophytes and severe facet arthropathy withthickening of the ligamentum flavum. Severe narrowing of the leftneuroforamen by the epidural mass. Mild-moderate neuroforaminal narrowingon the right. L4-L5: Small broad-based osteophytes. Severe facet arthropathy but nocentral canal stenosis. Mild-moderate neuroforaminal narrowing on theright and mild neuroforaminal narrowing on the left. L5-S1: Broad-based disc-osteophyte complex. Severe facet arthropathy. Nocentral canal stenosis. Moderate-severe narrowing of the leftneuroforamen. Moderate narrowing of the right neuroforamen. IMPRESSION: 1. Large left-sided epidural mass extending from L2-L3 to L3-L4 favoredto be a hemorrhagic synovial cyst. This compresses and displaces thethecal sac the right and results in severe central canal stenosis atL3-L4, moderate central canal stenosis at L2-L3 and severe narrowing ofthe left neuroforamen at L3-L4. Surgical consultation could be considered.If no intervention planned this could be followed by MRI. 2. Severe degenerative disc and endplate changes at L3-L4, L4-L5 andL5-S1. Severe facet arthropathy from L2-L3 to L5-S1. 3. Moderate-severe neuroforaminal narrowing at L5-S1 on the left and, toa slightly lesser degree, contralaterally at this level. Yana Greenfield NP IMG MR XSPECIALTY Final Result documented in this encounter Visit Diagnoses Diagnosis Lumbar radiculopathy- Primary Thoracic or lumbosacral neuritis or radiculitis, unspecified Lumbar radiculopathy Thoracic or lumbosacral neuritis or radiculitis, unspecified documented in this encounter Care Teams Farm Operations Manager Relationship Specialty Start Date End Date Clem Wilson DO [email or web address] PCP - General Internal Medicine 06/30/22 documented as of this encounter Additional Source Comments The information contained in this document represents components of the legal health record. It is not the complete legal health record.[facility]
--- OUTSIDE RECORDS SUMMARY | 2025-08-03 14:38 | XMS_ITS | Encounter Summary ---
Author Organization [facility] Address [address] [place] [address] Phone Care Team Providers Care Kennel Worker Name Role Phone Clem Wilson DO Primary Care Provider [phone] Reason for Referral * MRI/CAT Scan - Closed Specialty Diagnoses / Procedures Referred By Solitario gonzales Referred To Contact Radiology Diagnoses Other symptoms and signs involving the musculoskeletal system Procedures MRI Lumbar Spine CHG MRI, LUMBAR SPINE Clem Wilson DO [address] [place], [place] Phone: tel: fax: mailto:[email or web address] Referral ID Status Reason Start Date Expiration Date Visits Re quested Visits Authorized [id number] Closed 04/09/2025 06/08/2025 1 1 Encounter Details Date Type Department Care Team (Late st Contact Info) Description 04/16/2025 Transcribe Orders Virtual Department [address] [place] [address] Clem Wilson DO [address] [place] [address] [email or web address] Other symptoms and signs involving the musculoskeletal system (Primary Dx) Social History Tobacco Use Types [...] this encounter Results * MRI LUMBAR SPINE (NEURO) WITHOUT CONTRAST (05/05/2025 4:45 PM EDT) [facility] IMG ROLL LINE OPERATOR COMMENT Large extruded disc material vs. underlying epidural lesion @ L2-L3 level. [facility] MGB IMG RECOMMENDATION COMMENT Extruded disc vs. underlying lesion @ L2-L3 level [facility] Anatomical Region Laterality Modality L-spine Magnetic [...] initiated on 05/09/2025 9:11 AM, Message ID [id number]. Narrative 05/09/2025 9:12 AM EDT MRI LUMBAR [...] MRI LUMBAR SPINE (BONE) WITH AND WITHOUT [id number] FINDINGS: Motion degraded exam. Alignment and Vertebrae: [...] L2-3 disc space to lower 2/3rd of [id number] level, which may represent extruded disc material. [...] was initiated on 05/09/2025 9:11 AM,Message ID [id number]. us Clem Wilson DO IMG MR XSPECIALTY Final Result documented in this encounter Visit Diagnoses Diagnosis Other symptoms and signs involving the musculoskeletal system- Primary Other symptoms and signs involving the musculoskeletal system documented in this encounter Care Teams Kennel Worker Relationship Specialty Start Date End Date Clem Wilson DO [email or web address] PCP - General Internal Medicine 06/30/22 documented as of this encounter Additional Source Comments The information contained in this document represents components of the legal health record. It is not the complete legal health record.[facility]
--- OUTSIDE RECORDS SUMMARY | 2025-08-03 14:38 | XMS_ITS | Encounter Summary ---
Author Organization [facility] Address [address] [employer] [facility] [address] [place] [address] Phone Care Team Providers Care Water Operator Name Role Phone Clem Wilson DO Primary Care Provider [phone] Encounter Details Date Type Department Care Team (Late st Contact Info) Description 04/10/2025 Ancillary Orders Virtual Department [address] [place] [address] Clem Wilson DO [address] [facility] [place] [address] [place] [address] [email or web address] Generalized abdominal pain (Primary Dx) Social History Tobacco Use Types [...] as of this encounter Results * XR Abdomen Series Supine with Decubitus/Erect and Single View Chest (04/10/2025 1:28 PM EDT) Anatomical Region Laterality Modality Abdomen, Chest Computed Radiogr aphy 04/10/2025 2:13 PM EDT Impressions 04/10/2025 2:20 PM EDT 1. Moderate amount of stool in the right colon without plain film evidence for bowel obstruction or pneumoperitoneum. 2. No acute cardiopulmonary process. Narrative 04/10/2025 2:20 PM EDT XR ABDOMEN SERIES SUPINE WITH DECUBITIS/ERECT AND SINGLE VIEW CHEST Referring clinician's provided indication for this examination in Epic: Outside Radiology Order; abdomen pain COMPARISON: FL UGI SERIES DOUBLE CONTRAST FINDINGS: CHEST:Normally inflated without parenchymal consolidation or pulmonary edema. The heart is normal in size. There are mild to moderate atherosclerotic calcifications of the aortic arch. No pleural effusion or pneumothorax. There are multilevel degenerative changes including moderate degenerative changes of both shoulders. ABDOMEN: There is a moderate amount stool in the right colon. There is a nonobstructive bowel gas pattern. No abnormal calcifications are seen overlying both kidneys There are calcified phleboliths in the pelvis. There is a levoconvex curvature of the lumbar spine with moderate to severe multilevel degenerative change. There is no plain film evidence for pneumoperitoneum on upright chest radiograph. Procedure Note Guillermo Mcwilliams MD - 04/10/2025 XR ABDOMEN SERIES SUPINE WITH DECUBITIS/ERECT AND SINGLE VIEW CHEST Referring clinician's provided indication for this examination in Epic:Outside Radiology Order; abdomen pain COMPARISON: FL UGI SERIES DOUBLE CONTRAST FINDINGS: CHEST:Normally inflated without parenchymal consolidation or pulmonaryedema. The heart is normal in size. There are mild to moderateatherosclerotic calcifications of the aortic arch. No pleural effusion orpneumothorax. There are multilevel degenerative changes including moderatedegenerative changes of both shoulders. ABDOMEN: There is a moderate amount stool in the right colon. There is anonobstructive bowel gas pattern. No abnormal calcifications are seenoverlying both kidneys There are calcified phleboliths in the pelvis.There is a levoconvex curvature of the lumbar spine with moderate tosevere multilevel degenerative change. There is no plain film evidence forpneumoperitoneum on upright chest radiograph. IMPRESSION: 1. Moderate amount of stool in the right colon without plain filmevidence for bowel obstruction or pneumoperitoneum. 2. No acute cardiopulmonary process. us Clem Wilson DO IMG XR ABDOMEN Final Result documented in this encounter Visit Diagnoses Diagnosis Generalized abdominal pain Abdominal pain, generalized Generalized abdominal pain- Primary Abdominal pain, generalized documented in this encounter Care Teams Water Operator Relationship Specialty Start Date End Date Clem Wilson DO PCP - General Internal Medicine 06/30/22 documented as of this encounter Additional Source Comments The information contained in this document represents components of the legal health record. It is not the complete legal health record.[facility]
--- OUTSIDE RECORDS SUMMARY | 2025-08-03 14:38 | XMS_ITS | Encounter Summary ---
Author Organization [facility] Address [address] [employer] [address] [address] Phone Care Team Providers Care Relish Maker Name Role Phone Pcp, Unknown Primary Care Provider Clem Powell DO Primary Care Provider Encounter Details Date Type Department Care Team ([facility] st Contact Info) Description 06/26/2022 Transcribe Orders Virtual Department [address] [place] [address] Clem Wilson DO [address] [facility] [place] [address] [place] [address] [email or web address] Osteoarthritis of hip, unspecified laterality, unspecified osteoarthritis type (Primary Dx) Social History Tobacco Use Types [...] as of this encounter Visit Diagnoses Diagnosis Osteoarthritis of hip, unspecified laterality, unspecified osteoarthritis type- Primary documented in this encounter Care Teams Relish Maker Relationship Specialty Start Date End Date Pcp, Unknown PCP - General 10/09/20 06/29/22 Clem Wilson DO [email or web address] PCP - General Internal Medicine 06/30/22 documented as of this encounter Additional Source Comments The information contained in this document represents components of the legal health record. It is not the complete legal health record.[facility]
--- OUTSIDE RECORDS SUMMARY | 2025-08-03 14:38 | XMS_ITS | Encounter Summary ---
Author Organization [facility] Address [address] [address] Phone Care Team Providers Care Inside Sales Manager Name Role Phone Clem Wilson DO Primary Care Provider [phone] Pcp, Unknown Primary Care Provider UnavailClem Gee DO Primary Care Provider Encounter Details Date Type Department Care Team (Late st Contact Info) Description 02/01/2018 Transcribe Orders [facility] [address] [place] [address] Clem Wilson DO [address] [facility] [address] [email or web address] Type 2 diabetes mellitus without complication, unspecified mcfp insulin use status (Primary Dx); Pure hypercholesterolemia Social History Tobacco Use Types Packs/Day Years [...] as of this encounter Visit Diagnoses Diagnosis Type 2 diabetes mellitus without complication, unspecified terminal computer operator insulin use status- Primary Pure hypercholesterolemia documented in this encounter Care Teams Inside Sales Manager Relationship Specialty Start Date End Date Clem Wilson [email or web address] PCP - General 09/16/17 10/08/20 Pcp, Unknown PCP - General 10/09/20 06/29/22 Clem Wilson DO PCP - General Internal Medicine 06/30/22 documented as of this encounter Additional Source Comments The information contained in this document represents components of the legal health record. It is not the complete legal health record.[facility]
--- OUTSIDE RECORDS SUMMARY | 2025-08-03 14:38 | XMS_ITS | Encounter Summary ---
Author Organization [facility] Address [address] [employer] [address] [address] Phone Care Team Providers Care Commercial Art Instructor Name Role Phone Clem Wilson DO Primary Care Provider [phone] Pcp, Unknown Primary Care Provider Unavailabl e Clem Wilson DO Primary Care Provider [phone] Reason for Referral * Physical Therapy (Routine) - Closed Specialty Diagnoses / Procedures Referred By Solitario gonzales Referred To Contact Physical Therapy Diagnoses Strain of left trapezius muscle, initial encounter Clem Wilson DO Phone: tel: fax: [email or web address] [facility] [address] [place] [address] Phone: tel: Referral ID Status Reason Start Date Expiration Date Visits Re quested Visits Authorized [id number] Closed 09/19/2019 09/19/2020 1 1 Encounter Details Date Type Department Care Team (Late st Contact Info) Description 09/19/2019 Transcribe Orders [facility] [address] [place] [address] Clem Wilson DO [address] [facility] [place] [address] Strain of left trapezius muscle, initial encounter (Primary Dx) Social History Tobacco Use Types Packs/Day Years Used Date Smoking Tobacco: Never Smokeless Tobacco: Never Alcohol Use Standard Drinks/Week Comments Yes 0 (1 standard drink = 0.6 oz pur e alcohol) Comments No Sex and Gender Information Value Date Recorded Sex Assigned at Female 12/01/2022 8:55 AM EST Legal Sex Female 10:08 PM EDT Gender Identity Female 12/01/2022 8:55 AM EST Sexual Orientation Straight 12/01/2022 8: 55 AM EST documented as of this encounter Plan of Treatment Scheduled Referrals Name Type Priority Associated Diagnoses Order Schedule Ambulatory referral to [facility] Physical Therapy Outpatient Referral Routine Strain of left trapezius muscle, initial encounter Ordered: 09/19/2019 documented as of this encounter Visit Diagnoses Diagnosis Strain of left trapezius muscle, initial encounter- Primary documented in this encounter Care Teams Commercial Art Instructor Relationship Specialty Start Date End Date Clem Wilson DO PCP - General 09/16/17 10/08/20 Pcp, Unknown PCP - General 10/09/20 06/29/22 Clem Wilson DO PCP - General Internal Medicine 06/30/22 documented as of this encounter Additional Source Comments The information contained in this document represents components of the legal health record. It is not the complete legal health record.[facility]
--- OUTSIDE RECORDS SUMMARY | 2025-08-03 14:38 | XMS_ITS | Encounter Summary ---
Author Organization [facility] Address [address] [employer] [address] [address] Phone Care Team Providers Care Machine Feeder Raw Stock Name Role Phone Clem Wilson DO Primary Care Provider [phone] Encounter Details Date Type Department Care Team (Late st Contact Info) Description 09/25/2022 Ancillary Orders Virtual Department [address] [place] [address] Clem Wilson DO [address] [facility] [place] [address] [place] [address] [email or web address] Osteopenia, unspecified location; Other specified disorders of bone density and structure, unspecified site Social History Tobacco Use Types Packs/Day Years [...] as of this encounter Visit Diagnoses Diagnosis Osteopenia, unspecified location Other specified disorders of bone density and structure, unspecified site documented in this encounter Care Teams Machine Feeder Raw Stock Relationship Specialty Start Date End Date Clem Wilson DO [email or web address] PCP - General Internal Medicine 06/30/22 documented as of this encounter Additional Source Comments The information contained in this document represents components of the legal health record. It is not the complete legal health record.[facility]
--- OUTSIDE RECORDS SUMMARY | 2025-08-03 14:38 | XMS_ITS | Encounter Summary ---
Author Organization [facility] Address [address] [email or web address] [facility] [address] [place] [address] Phone Care Team Providers Care Automobile Rental Representative Name Role Phone Clem Wilson DO Primary Care Provider Reason for Referral * MRI/CAT Scan - Closed Specialty Diagnoses / Procedures Referred By Solitario gonzales Referred To Contact Radiology Diagnoses Spinal stenosis, lumbar region without neurogenic claudication Procedures MRI Lumbar Spine CHG MRI, LUMBAR SPINE CONTRAST CHG MRI, LUMBAR SPINE COMBO Clem Wilson DO [address] [facility] [address] [place], [place] Phone: tel: fax: [email or web address] Referral ID Status Reason Start Date Expiration Date Visits Re quested Visits Authorized [id number] Closed 05/24/2025 07/28/2025 1 1 Encounter Details Date Type Department Care Team (Late st Contact Info) Description 05/30/2025 Transcribe Orders Virtual Department [address] [place] [address] Clem Wilson DO [address] [facility] [address] [place], [place] [email or web address] Spinal stenosis, lumbar region without neurogenic claudication (Primary Dx) Social History Tobacco Use Types [...] encounter Results * MRI LUMBAR SPINE (NEURO) WITH AND WITHOUT CONTRAST (06/23/2025 5:29 PM EDT) MGB IMG ZIGZAG MACHINE OPERATOR COMMENT 1 cm right subarticular disc extrusion at L2-L3 level, contributing to moderate to severe spinal canal stenosis. Neurosurigcal evaluation is recommended. [facility] Anatomical Region Laterality Modality L-spine Magnetic Resonan [...] initiated on 06/25/2025 1:32 PM, Message ID [id number]. Narrative 06/25/2025 1:33 PM EDT MRI LUMBAR [...] bulge with bilateral facet hypertrophy, resulting in loxj-nw-bsllnpke spinal canal stenosis. There is severe bilateral [...] disc bulge withbilateral facet hypertrophy, resulting in kwlg-yj-qcnytscg spinal canalstenosis. There is severe bilateral neural [...] of marked degenerative disc disease changes at L2-Z7grnmf with a 1 x 1 x 1 cm right subarticular disc extrusion extending fromL2-L3 level through lower third L3 level. Superimposed with thedegenerative disc disease changes, there is moderate to severe spinalcanal stenosis at L2-L3. Neurosurgical evaluation is recommended. 3. Additional degenerative disc disease changes of the lumbar spine asdetailed above. A clinically significant result was initiated on 06/25/2025 1:32 PM,Message ID [id number]. Clem Wilson DO IMG MR XSPECIALTY Final Result documented in this encounter Visit Diagnoses Diagnosis Spinal stenosis, lumbar region without neurogenic claudication- Primary Spinal stenosis, lumbar region without neurogenic claudication documented in this encounter Care Teams Automobile Rental Representative Relationship Specialty Start Date End Date Clem Wilson DO [email or web address] PCP - General Internal Medicine 06/30/22 documented as of this encounter Additional Source Comments The information contained in this document represents components of the legal health record. It is not the complete legal health record.[facility]
--- OUTSIDE RECORDS SUMMARY | 2025-08-03 14:38 | XMS_ITS | Encounter Summary ---
Author Organization [facility] Address [address] [employer] [address] [place] [address] Phone Care Team Providers Care Gaming Cage Worker Name Role Phone Clem Wilson DO Primary Care Provider [phone] Encounter Details Date Type Department Care Team ([facility] st Contact Info) Description 04/06/2025 Transcribe Orders Virtual Department [address] [place] [address] Clem Wilson DO [address] [facility] [place] [address] [email or web address] Generalized abdominal pain (Primary Dx) Social History [...] as of this encounter Visit Diagnoses Diagnosis Generalized abdominal pain- Primary Abdominal pain, generalized documented in this encounter Care Teams Gaming Cage Worker Relationship Specialty Start Date End Date Clem Wilson DO [email or web address] PCP - General Internal Medicine 06/30/22 documented as of this encounter Additional Source Comments The information contained in this document represents components of the legal health record. It is not the complete legal health record.[facility]
--- OUTSIDE RECORDS SUMMARY | 2025-08-03 14:38 | XMS_ITS | Encounter Summary ---
Author Organization [facility] Address [address] [email or web address] [address] [address] Phone Care Team Providers Care Record Tester Name Role Phone Clem Wilson DO Primary Care Provider [phone] Encounter Details Date Type Department Care Team ([facility] st Contact Info) Description 09/25/2022 Transcribe Orders Virtual Department [address] [place] [address] Clem Wilson DO [address] [facility] [place] [address] Osteopenia, unspecified location Social History Tobacco Use Types Packs/Day Years [...] encounter Visit Diagnoses Diagnosis Osteopenia, unspecified location documented in this encounter Care Teams Record Tester Relationship Specialty Start Date End Date Clem Wilson DO PCP - General Internal Medicine 06/30/22 documented as of this encounter Additional Source Comments The information contained in this document represents components of the legal health record. It is not the complete legal health record.[facility]
--- OUTSIDE RECORDS SUMMARY | 2025-08-03 14:38 | XMS_ITS | Encounter Summary ---
Author Organization [facility] Address [address] [employer] [address] [place] [address] Phone Care Team Providers Care Six Horse Hitch Driver Name Role Phone Reilly Ward DO Primary Care Provider [phone] Encounter Details Date Type Department Care Team ([facility] st Contact Info) Description 09/22/2024 Transcribe Orders Virtual Department [address] [place] [address] Reilly Ward DO [address] [facility] [place] [address] [email or web address] Breast screening (Primary Dx); Encounter for screening for osteoporosis; Functional dyspepsia Social History Tobacco Use Types Packs/Day Years [...] documented as of this encounter Results * BD DXA SPINE AND HIP WITH FOREARM (07/10/2025 2:50 PM EDT) Anatomical Region Laterality Modality Bone Density Bone Density 07/10/2025 2:38 PM EDT Impressions 07/11/2025 12:34 PM EDT Interpretation: Normal bone mineral density. Narrative 07/11/2025 12:34 PM EDT Referred By: REILLY WARD Indications: Osteoporosis Scanner: [employer] A with serial# of [id number] located at [facility] Bone Density Scan (DXA) 07/10/25 Details of [...] -2.5), or Osteoporosis (T-score <= -2.5). At [facility], T-scores are compared to peak bone density [...] Referred By: REILLY WARD Indications: Osteoporosis Scanner: [employer] A with serial# of [id number] located at [facility] Bone Density Scan (DXA) 07/10/25 Details of [...] -2.5), or Osteoporosis (T-score <= -2.5). At [facility], T-scores are compared to peak bone density [...] BONE DENSITY DEXA Final R esult * BI MAMMOGRAM SCREENING WITH TOMOSYNTHESIS WITH CAD (BILATERAL) (03/23/2025 2:18 PM EDT) Anatomical Region Laterality Modality Breast Left, Breast Right, Breast Bilateral Bila teral Mammography 03/26/2025 4:06 PM EDT Impressions 03/26/2025 4:07 PM EDT No mammographic evidence of malignancy in either breast. Annual screening mammography is recommended. BI-RADS 1 NEGATIVE The patient will be notified of the results and recommendations. Narrative 03/26/2025 4:07 PM EDT BI MAMMOGRAM SCREENING WITH TOMOSYNTHESIS WITH CAD (BILATERAL) Additional patient information: Screening. COMPARISON: Comparison is made with relevant prior imaging. Breast composition: The breasts are heterogeneously dense, which may obscure small masses. FINDINGS: No abnormal masses, suspicious calcifications, or other significant findings are identified mammographically in either breast. Procedure Note Daphnie Patterson MD - 03/26/2025 BI MAMMOGRAM SCREENING WITH TOMOSYNTHESIS WITH CAD (BILATERAL) Additional patient information: Screening. COMPARISON: Comparison is made with relevant prior imaging. Breast composition: The breasts are heterogeneously dense, which mayobscure small masses. FINDINGS: No abnormal masses, suspicious calcifications, or other significantfindings are identified mammographically in either breast. IMPRESSION: No mammographic evidence of malignancy in either breast. Annual screening mammography is recommended. BI-RADS 1 NEGATIVE The patient will be notified of the results and recommendations. us Reilly A Bigda DO IMG MG EXAMS Final Result * FL UGI SERIES DOUBLE CONTRAST (09/28/2024 9:58 AM EDT) Anatomical Region Laterality Modality Abdomen Computed Radiogr aphy 09/28/2024 11:4 2 AM EDT Impressions 09/28/2024 12:57 PM EDT Upper GI series is within normal limits without gross mucosal pathology visualized. FLUOROSCOPY TIME: 1 minute 30 seconds NUMBER OF IMAGES: 173 The examination was performed by RRA, Tino Perez, under direct supervision by Dr. Harish Kowalski. ATTESTATION: I, Harish Kowalski as teaching physician, have reviewed the images for this case and if necessary edited the report originally created by Tino Perez. Narrative 09/28/2024 12:57 PM EDT FL UGI SERIES DOUBLE CONTRAST HISTORY: Dyspepsia COMPARISON: No recent relevant priors. TECHNIQUE: Double contrast upper GI series was performed with Sodium Carbonate and Barium. FINDINGS: A preliminary view of the abdomen demonstrates an unremarkable bowel gas pattern. ESOPHAGUS: Motility: No significant esophageal dysmotility. Mucosa: No discrete mass, ulceration or fixed stricture demonstrated fluoroscopically. Distensibility: Normal. GASTROESOPHAGEAL JUNCTION: No evidence of hiatal hernia. GASTROESOPHAGEAL REFLUX: None observed. TABLET: No impedance to the passage of a 13 mm barium tablet into the stomach. STOMACH: Normally distensible and demonstrates normal contours and mucosal pattern. DUODENUM: Bulb and sweep are normal. Duodenal-jejunal junction is in the normal expected position. Procedure Note Harish Kowalski MD - 09/28/2024 FL UGI SERIES DOUBLE CONTRAST HISTORY: Dyspepsia COMPARISON: No recent relevant priors. TECHNIQUE: Double contrast upper GI series was performed with SodiumCarbonate and Barium. FINDINGS: A preliminary view of the abdomen demonstrates an unremarkable bowel gaspattern. ESOPHAGUS: Motility: No significant esophageal dysmotility. Mucosa: No discrete mass, ulceration or fixed stricture demonstratedfluoroscopically. Distensibility: Normal. GASTROESOPHAGEAL JUNCTION: No evidence of hiatal hernia. GASTROESOPHAGEAL REFLUX: None observed. TABLET: No impedance to the passage of a 13 mm barium tablet into thestomach. STOMACH: Normally distensible and demonstrates normal contours andmucosal pattern. DUODENUM: Bulb and sweep are normal. Duodenal-jejunal junction is in thenormal expected position. IMPRESSION: Upper GI series is within normal limits without gross mucosal pathologyvisualized. FLUOROSCOPY TIME: 1 minute 30 seconds NUMBER OF IMAGES: 173 The examination was performed by RRA, Tino Perez, under directsupervision by Dr. Harish Kowalski. ATTESTATION: I, Harish Kowalski as teaching physician, have reviewed theimages for this case and if necessary edited the report originally createdby Tino Perez. us Reilly A Katie MARQUEZ IMG FL MISC Final Result documented in this encounter Visit Diagnoses Diagnosis Breast screening- Primary Breast screening, unspecified Encounter for screening for osteoporosis Functional dyspepsia Dyspepsia and other specified disorders of function of stomach Functional dyspepsia Dyspepsia and other specified disorders of function of stomach Breast screening Breast screening, unspecified Encounter for screening for osteoporosis documented in this encounter Care Teams Six Horse Hitch Driver Relationship Specialty Start Date End Date Reilly Ward DO [email or web address] PCP - General Internal Medicine 06/30/22 documented as of this encounter Additional Source Comments The information contained in this document represents components of the legal health record. It is not the complete legal health record.[facility]
--- OUTSIDE RECORDS SUMMARY | 2025-08-03 14:38 | XMS_ITS | Encounter Summary ---
Author Organization [facility] Address [address] [place] [address] Phone Care Team Providers Care Cushion Sewer Name Role Phone Clem Wilson DO Primary Care Provider [phone] Encounter Details Date Type Department Care Team (Late st Contact Info) Description 03/08/2023 Procedure Pass [facility], [address] [address] Social History Tobacco Use Types Packs/Day Years [...] on filedocumented in this encounter Care Teams Cushion Sewer Relationship Specialty Start Date End Date Clem Wilson DO PCP - General Internal Medicine 06/30/22 documented as of this encounter Additional Source Comments The information contained in this document represents components of the legal health record. It is not the complete legal health record.[facility]
--- OUTSIDE RECORDS SUMMARY | 2025-08-03 14:38 | XMS_ITS | Encounter Summary ---
Author Organization [facility] Address [address] [address] Phone Care Team Providers Care Fruit Packer Name Role Phone Pcp, Unknown Primary Care Provider Clem Powell DO Primary Care Provider [phone] Encounter Details Date Type Department Care Team ([facility] st Contact Info) Description 09/18/2021 Transcribe Orders Virtual Department [address] [place] [address] Clem Wilson DO [address] [place] [address] [place] [address] [email or web address] Right hip pain (Primary Dx) Social History Tobacco Use [...] as of this encounter Visit Diagnoses Diagnosis Right hip pain- Primary Pain in joint, pelvic region and thigh documented in this encounter Care Teams Fruit Packer Relationship Specialty Start Date End Date Pcp, Unknown PCP - General 10/09/20 06/29/22 Clem Wilson DO [email or web address] PCP - General Internal Medicine 06/30/22 documented as of this encounter Additional Source Comments The information contained in this document represents components of the legal health record. It is not the complete legal health record.[facility]
--- OUTSIDE RECORDS SUMMARY | 2025-08-03 14:38 | XMS_ITS | Encounter Summary ---
Author Organization [facility] Address [address] [address] Phone Care Team Providers Care Horizontal Resaw Operator Name Role Phone Clem Wilson DO Primary Care Provider Pcp, Unknown Primary Care Provider UnavailClem Gee DO Primary Care Provider [phone] Encounter Details Date Type Department Care Team (Late st Contact Info) Description 12/07/2018 Ancillary Orders Virtual Department [address] [place] [address] Clem Wilson DO [address] [employer] [place] [address] [place] [address] [email or web address] Breast screening Social History Tobacco Use Types Packs/Day Years [...] documented as of this encounter Results * BI MAMMOGRAM SCREENING WITH TOMOSYNTHESIS WITH CAD (BILATERAL) (01/05/2019 10:48 AM EST) Anatomical Region Laterality Modality Breast Left, Breast Right, Breast Bilateral Bila teral Mammography 01/05/2019 1:18 PM EST Impressions 01/05/2019 1:21 PM EST Stable appearance relative to prior imaging. No findings suggestive of malignancy are seen. BI-RADS CATEGORY: 2 - Benign finding. DENSITY: There are scattered fibroglandular densities. POS - [id number] Narrative 01/05/2019 1:21 PM EST Full-field digital mammography is obtained with computer-aided detection. Comparison with prior imaging from 03/27/2015 is made with older imaging dating back as far as 04/21/2007 also reviewed. There is scattered fibroglandular density evident in the breasts. In addition to 2-D C view imaging, tomosynthesis images are obtained in two projections of each breast. There are unchanged right breast skin calcifications with some small intramammary lymph nodes again evident on the right.. No dominant soft tissue mass of concern, suspicious cluster of calcifications, significant interval skin changes, or architectural distortion is identified. Procedure Note Riley Turcios MD - 01/05/2019 Full-field digital mammography is obtained with computer-aided detection.Comparison with prior imaging from 03/27/2015 is made with older imagingdating back as far as 04/21/2007 also reviewed. There is scattered fibroglandular density evident in the breasts. Inaddition to 2-D C view imaging, tomosynthesis images are obtained in twoprojections of each breast. There are unchanged right breast skin calcifications with some smallintramammary lymph nodes again evident on the right.. No dominant softtissue mass of concern, suspicious cluster of calcifications, significantinterval skin changes, or architectural distortion is identified. IMPRESSION: Stable appearance relative to prior imaging. No findings suggestive ofmalignancy are seen. BI-RADS CATEGORY: 2 - Benign finding. DENSITY: There are scattered fibroglandular densities. POS - [id number] us Clem A Bigda DO IMG MG EXAMS Final Result documented in this encounter Visit Diagnoses Diagnosis Breast screening Breast screening, unspecified Breast screening Breast screening, unspecified documented in this encounter Care Teams Horizontal Resaw Operator Relationship Specialty Start Date End Date Clem Wilson DO [email or web address] PCP - General 09/16/17 10/08/20 Pcp, Unknown PCP - General 10/09/20 06/29/22 Clem Wilson DO [email or web address] PCP - General Internal Medicine 06/30/22 documented as of this encounter Additional Source Comments The information contained in this document represents components of the legal health record. It is not the complete legal health record.[facility]
--- OUTSIDE RECORDS SUMMARY | 2025-08-03 14:39 | XMS_ITS | Encounter Summary ---
Author Organization [facility] Address [address] [place] [address] Phone Care Team Providers Care Mission Commander Name Role Phone Clem Wilson DO Primary Care Provider [phone] Encounter Details Date Type Department Care Team (Late st Contact Info) Description 02/01/2023 Transcribe Orders Virtual Department [address] [place] [address] Clem Wilson DO [address] [facility] [place] [address] [place] [address] [email or web address] Other specified mononeuropathies (Primary Dx) Social History Tobacco Use Types [...] as of this encounter Results * XR THORACIC SPINE 3 VIEW (02/02/2023 11:34 AM EST) Anatomical Region Laterality Modality T-spine Computed Radiogr aphy 02/02/2023 11:3 9 PM EST Impressions 02/02/2023 11:40 PM EST 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 Narrative 02/02/2023 11:40 PM EST XR THORACIC SPINE 3 VIEW COMPARISON: None FINDINGS: ALIGNMENT: Straightening of the thoracic kyphosis. VERTEBRAE: Vertebral body heights preserved. DISCS: Disc height loss and endplate sclerosis and marginal osteophytes. Developing thoracic DISH. FACETS: Facets normally aligned. PARASPINAL SOFT TISSUES: Aorta calcified. Procedure Note Maye Garcia MD - 02/02/2023 XR THORACIC SPINE 3 VIEW COMPARISON: None FINDINGS: ALIGNMENT: Straightening of the thoracic kyphosis. VERTEBRAE: Vertebral body heights preserved. DISCS: Disc height loss and endplate sclerosis and marginal osteophytes.Developing thoracic DISH. FACETS: Facets normally aligned. PARASPINAL SOFT TISSUES: Aorta calcified. 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 It is not the complete legal health record.[facility]
--- OUTSIDE RECORDS SUMMARY | 2025-08-03 14:39 | XMS_ITS | Encounter Summary ---
Author Organization [facility] Address [address] [place] [address] Phone Care Team Providers Care Ambulance Paramedic Name Role Phone Clem Wilson DO Primary Care Provider [phone] Encounter Details Date Type Department Care Team ([facility] st Contact Info) Description 10/12/2022 Prep for Surgery [facility] [address] [place] [address] Mariela Gil MD [address] [place] [address] Orthopedics & Sports Medicine, [facility] [place] [address] [email or web address] Social History Tobacco Use Types Packs/Day Years [...] on filedocumented in this encounter Care Teams Ambulance Paramedic Relationship Specialty Start Date End Date Clem Wilson DO [email or web address] PCP - General Internal Medicine 06/30/22 documented as of this encounter Additional Source Comments The information contained in this document represents components of the legal health record. It is not the complete legal health record.[facility]
--- OUTSIDE RECORDS SUMMARY | 2025-08-03 14:39 | XMS_ITS | Encounter Summary ---
Author Organization [facility] Address [address] [employer] [address] [address] Phone Care Team Providers Care Lead Manufacturing Technician Name Role Phone Clem Wilson DO Primary Care Provider [phone] Encounter Details Date Type Department Care Team (Late st Contact Info) Description 10/28/2022 Procedure Pass [place] Admitting Dept - Virtual Department [address] [place] [address] Social History Tobacco Use Types Packs/Day Years [...] on filedocumented in this encounter Care Teams Lead Manufacturing Technician Relationship Specialty Start Date End Date Clem Wilson DO PCP - General Internal Medicine 06/30/22 documented as of this encounter Additional Source Comments The information contained in this document represents components of the legal health record. It is not the complete legal health record.[facility]
[2025-08-03 15:57] LABS: Hemoglobin A1C 177.7073 umol/L; Total Hemoglobin (HGBA1C) 3424.1026 umol/L
== END 2025-08-03 14:10 | disposition home or self-care (01) ==
LOC: HO.MANLDS 14:09
PROVIDERS: Visit Provider Internal Medicine
DX: E11.9 Type 2 diabetes mellitus without complications (principal)
CPT/HCPCS: 36415; 83036